=== PATIENT | female | born 2000 | race Caucasian/White ===

== ENCOUNTER 2018-04-17 05:37 | Inpatient (IN) | payer MEDICAID ==
[~2018-04-17] VITALS: Ht 162.6 cm; Wt 59.1 kg
[2018-04-17] MEDS ORDERED: normal saline 1000ML IV soln IV ONE (05:45)
[2018-04-17 06:07] LABS: BASOPHILS % (AUTO) 0 % (0-1); EOSINOPHILS % (AUTO) 0 % (0-6); HEMATOCRIT 52.4 % (35.0-45.0); HEMOGLOBIN 17.1 g/dl (12.0-16.0); LYMPHOCYTES # (AUTO) 0.5 X10'3 (1.1-4.8); LYMPHOCYTES % (AUTO) 3.8 % (21-51); MEAN CORPUSCULAR HEMOGLOBIN 26.7 PG (27.0-31.0); MEAN CORPUSCULAR HGB CONC 32.7 % (33.0-36.5); MEAN CORPUSCULAR VOLUME 81.9 FL (78-98); MEAN PLATELET VOLUME 7.9 FL (7.4-10.4); MONOCYTES # (AUTO) 0.6 X10'3 (0-0.9); MONOCYTES % (AUTO) 4.9 % (2-12); NEUTROPHILS # (AUTO) 11.9 X10'3 (1.8-7.7); NEUTROPHILS % (AUTO) 91.3 % (42-75); PLATELET COUNT 343 X10'3 (140-440); RED CELL DISTRIBUTION WIDTH 13.8 % (11.5-14.5)
[2018-04-17 06:15] LABS: ANION GAP 18 (8-16); CALCIUM 9.4 MG/DL (8.5-10.1); CHLORIDE 101 MMOL/L (99-107); CREATININE 1.96 MG/DL (0.40-0.90); POTASSIUM 4.1 MMOL/L (3.5-5.1); SODIUM 141 MMOL/L (135-145); TOTAL CARBON DIOXIDE 22.1 MMOL/L (24-32); eGFR 33 ML/MIN
[2018-04-17 06:26] LABS: INR 1.3 INR; PARTIAL THROMBOPLASTIN TIME 29 SECONDS (22-32); PROTHROMBIN TIME 12.6 SECONDS (9.0-12.0)
[2018-04-17 06:46] LABS: ALANINE AMINOTRANSFERASE 45 U/L (12-78); ALBUMIN 3.9 G/DL (3.4-5.0); ALBUMIN/GLOBULIN RATIO 0.9 (1.1-1.5); ALKALINE PHOSPHATASE 79 IU/L (20-180); ASPARTATE AMINO TRANSFERASE 15 U/L (10-37); BILIRUBIN,TOTAL 0.7 MG/DL (0.1-1.0); BLOOD UREA NITROGEN 16 MG/DL (7-18); BUN/CREATININE RATIO 8.2 (6.6-38.0); GLUCOSE 280 MG/DL (70-104); TOTAL PROTEIN 8.3 G/DL (6.4-8.2)
[2018-04-17 06:48] LABS: PLATELET ESTIMATE NORMAL; TOTAL CELLS COUNTED 100
[2018-04-17 06:49] LABS: MAGNESIUM 0.8 MG/DL (1.5-2.4)
[2018-04-17] MEDS ORDERED: normal saline 1000ML IV soln IVB ONE ×2 (06:55→08:35)
[2018-04-17] MEDS ORDERED: magnesium 1gm/100ml D5W IVPB 100 ML IV SCH (06:55)
[2018-04-17] MEDS ORDERED: magnesium 2GM in 50ml NS 50 ML IV ONE (07:00)
[2018-04-17] MEDS ORDERED: KEP500T PO (07:29)
[2018-04-17] MEDS ORDERED: CefTRIAXone 2gm/D5W 50ml 50 ML IV ONE (08:35)
[2018-04-17] MEDS ORDERED: acetaminophen 325mg tablet PO STA (08:35)
[2018-04-17 08:52] LABS: CLARITY,URINE SLIGHTLY CLOUDY (Clear); COLOR,URINE YELLOW (Yellow); GLUCOSE, URINE NEGATIVE (Neg); KETONES,URINE TRACE mg/dl (Neg); LEUKOCYTE ESTERASE ,URINE NEGATIVE (Neg); NITRITES, URINE NEGATIVE (Neg); OCCULT BLOOD,URINE TRACE-INTACT (Neg); PH,URINE 5.5 (4.8-8.0); PROTEIN,URINE NEGATIVE (Neg); UROBILINOGEN,URINE 0.2 E.U/dL (0.2-1.0)
[2018-04-17 08:53] LABS: URINE HCG NEGATIVE (NEG)
[2018-04-17 08:54] LABS: UA COLLECTION TYPE STRAIGHT CATH
[2018-04-17 09:00] LABS: BACTERIA,URINE FEW /HPF (Neg); MUCUS STRANDS MANY /LPF (Neg); RBC,URINE 0-2 /HPF (0-2); SQUAMOUS EPITHELIAL CELL,UR MANY /LPF (FEW); WBC,URINE 0-4 /HPF (0-4)
[2018-04-17] MEDS ORDERED: glucagon, human recombinant 1mg kit SUBCUT PRN (09:15)
[2018-04-17] MEDS ORDERED: acetaminophen 325mg tablet PO PRN (09:15)
[2018-04-17] MEDS ORDERED: potassium Cl 20 mEq SR tablet PO PRN ×2 (09:15)
[2018-04-17] MEDS ORDERED: potassium Cl 40MEQ/NS 500ml 500 ML IV PRN ×2 (09:15)
[2018-04-17] MEDS: K and/or MAG REPLACEMENT MC SCH (09:15)
[2018-04-17] MEDS ORDERED: magnesium 4gm in 100ml NS 100 ML IV PRN (09:15)
[2018-04-17] MEDS ORDERED: ondansetron/PF 4mg/2ml inj IV PRN (09:15)
[2018-04-17] MEDS ORDERED: magnesium hydroxide 30ml (MOM) UD suspension PO PRN (09:15)
[2018-04-17] MEDS ORDERED: mag hydrox/Alum hydrox/simeth 30ml oral suspension PO PRN (09:15)
[2018-04-17] MEDS ORDERED: insulin Lispro (HumaLOG) vial - multi-dose SQ SCH (09:15)
[2018-04-17] MEDS ORDERED: dextrose 50%-water 50ml dispensing syringe IV PRN ×2 (09:15)
[2018-04-17] MEDS ORDERED: acetaminophen 325mg/10.15ml oral unit dose solution PO PRN (09:15)
[2018-04-17] MEDS ORDERED: LORazepam 2 mg/ml vial IV PRN (09:15)
[2018-04-17] MEDS ORDERED: dextrose ORAL solution 15 GM/59 ML bottle PO PRN ×2 (09:15)
[2018-04-17] MEDS ORDERED: MESSAGE TO PHARMACY PO ONE (09:15)
[2018-04-17] MEDS ORDERED: magnesium 1gm/100ml D5W IVPB 100 ML IV PRN (09:15)
[2018-04-17] MEDS ORDERED: LORA0.5T PO (09:51)
[2018-04-17] MEDS ORDERED: LORA10CA9 PO (09:52)
[2018-04-17] MEDS ORDERED: CLON-529 PO (09:53)
[2018-04-17] MEDS ORDERED: LACO100T2 PO (09:54)
[2018-04-17] MEDS ORDERED: GLIM1TAB PO (09:55)
[2018-04-17] MEDS ORDERED: ESCI10TA PO (09:56)
[2018-04-17] MEDS ORDERED: MONT10TA24 PO (09:57)
[2018-04-17] MEDS ORDERED: LEVE100S21 PO (09:59)
[2018-04-17 10:03] LABS: HEMOGLOBIN A1C 6.7 % (4.5-6.2)
[2018-04-17] MEDS: normal saline 1000ml 1,000 ML IV SCH ×2 (11:56→17:51)
[2018-04-17 17:05] VITALS: BP 142/91
[2018-04-17 20:00] VITALS: BP 145/95
[2018-04-17] MEDS ORDERED: LACO10SO PO (20:07)
[2018-04-17] MEDS ORDERED: RANI15SY PO (20:07)
[2018-04-17] MEDS ORDERED: LEVO1TAB PO (20:14)
[2018-04-17] MEDS ORDERED: SENN1TAB28 PO (20:14)
[2018-04-17] MEDS ORDERED: IBUP100O20 PO (20:18)
[2018-04-17] MEDS: insulin glargine (Lantus) pen - multi-dose SQ SCH (21:00)
[2018-04-17] MEDS: LORazepam 0.5 MG tablet PO SCH (21:59)
[2018-04-17] MEDS: levetiracetam 100mg/ml oral solution 5ml UD cup PO SCH (22:00)
[2018-04-17] MEDS: cloNIDine 0.1 mg tablet PO SCH (22:00)
[2018-04-17] MEDS: LACOSAMIDE 10 MG/1 ML PO SCH (22:01)
[2018-04-18] VITALS: BP 129/95
[2018-04-18] MEDS: normal saline 1000ml 1,000 ML IV SCH ×3 (01:35→14:47)
[2018-04-18] MEDS: magnesium Cl slow-release 64mg tablet PO SCH ×2 (08:00→09:34)
[2018-04-18] MEDS ORDERED: famotidine 20MG/2.5ML oral suspension PO PRN (08:00)
[2018-04-18] MEDS: K and/or MAG REPLACEMENT MC SCH (08:00)
[2018-04-18 08:39] VITALS: BP 121/74
[2018-04-18] MEDS: loratadine 10mg tablet PO SCH (09:32)
[2018-04-18] MEDS: citalopram 20mg tablet PO SCH (09:32)
[2018-04-18] MEDS: LORazepam 0.5 MG tablet PO SCH ×3 (09:32→22:28)
[2018-04-18] MEDS: levetiracetam 100mg/ml oral solution 5ml UD cup PO SCH ×2 (09:33→20:09)
[2018-04-18] MEDS: montelukast 10mg tablet PO SCH (09:33)
[2018-04-18] MEDS: LACOSAMIDE 10 MG/1 ML PO SCH ×2 (09:36→20:35)
[2018-04-18 09:50] LABS: HEMATOCRIT 37.3 % (35.0-45.0); HEMOGLOBIN 12.1 g/dl (12.0-16.0); MEAN CORPUSCULAR HEMOGLOBIN 26.7 PG (27.0-31.0); MEAN CORPUSCULAR HGB CONC 32.5 % (33.0-36.5); MEAN CORPUSCULAR VOLUME 82.1 FL (78-98); PLATELET COUNT 185 X10'3 (140-440); RED BLOOD COUNT 4.55 X10'6 (4.20-5.60)
[2018-04-18 09:57] LABS: ALANINE AMINOTRANSFERASE 46 U/L (12-78); ALBUMIN 2.5 G/DL (3.4-5.0); ALBUMIN/GLOBULIN RATIO 0.8 (1.1-1.5); ALKALINE PHOSPHATASE 51 IU/L (20-180); ANION GAP 6 (8-16); ASPARTATE AMINO TRANSFERASE 37 U/L (10-37); BILIRUBIN,TOTAL 0.4 MG/DL (0.1-1.0); BLOOD UREA NITROGEN 4 MG/DL (7-18); BUN/CREATININE RATIO 7.3 (6.6-38.0); CALCIUM 7.9 MG/DL (8.5-10.1); CHLORIDE 109 MMOL/L (99-107); CREATININE 0.55 MG/DL (0.40-0.90); GLUCOSE 86 MG/DL (70-104); POTASSIUM 3.1 MMOL/L (3.5-5.1); SODIUM 140 MMOL/L (135-145); TOTAL CARBON DIOXIDE 24.8 MMOL/L (24-32); TOTAL PROTEIN 5.6 G/DL (6.4-8.2); eGFR > 90 ML/MIN
[2018-04-18 10:46] LABS: PLATELET ESTIMATE NORMAL; TOTAL CELLS COUNTED 100
[2018-04-18 11:57] VITALS: BP 150/118
[2018-04-18] MEDS ORDERED: potassium Cl oral solution 20 MEQ/15 ML PO PRN ×2 (14:52)
[2018-04-18 19:15] VITALS: BP 148/103
[2018-04-18] MEDS: insulin glargine (Lantus) pen - multi-dose SQ SCH (21:00)
[2018-04-18] MEDS ORDERED: vancomycin/NS 1 GM ADD-VANTAGE 250 ML IV SCH (22:00)
[2018-04-18] MEDS: VANCOMYCIN 750MG IV in NS 250 ML IV SCH (22:28)
[2018-04-18] MEDS: cloNIDine 0.1 mg tablet PO SCH (22:28)
[2018-04-19] VITALS: BP 123/86
[2018-04-19 04:52] LABS: BASOPHILS % (AUTO) 0.4 % (0-1); EOSINOPHILS # (AUTO) 0.2 X10'3 (0-0.9); EOSINOPHILS % (AUTO) 4.3 % (0-6); HEMATOCRIT 36.9 % (35.0-45.0); LYMPHOCYTES # (AUTO) 2.1 X10'3 (1.1-4.8); LYMPHOCYTES % (AUTO) 39.1 % (21-51); MEAN CORPUSCULAR HEMOGLOBIN 26.6 PG (27.0-31.0); MEAN CORPUSCULAR HGB CONC 32.6 % (33.0-36.5); MEAN CORPUSCULAR VOLUME 81.6 FL (78-98); MEAN PLATELET VOLUME 7.9 FL (7.4-10.4); MONOCYTES # (AUTO) 0.6 X10'3 (0-0.9); NEUTROPHILS # (AUTO) 2.4 X10'3 (1.8-7.7); NEUTROPHILS % (AUTO) 45.2 % (42-75); PLATELET COUNT 190 X10'3 (140-440); RED BLOOD COUNT 4.52 X10'6 (4.20-5.60); RED CELL DISTRIBUTION WIDTH 13.4 % (11.5-14.5); WHITE BLOOD COUNT 5.3 X10'3 (4.5-11.0)
[2018-04-19 05:18] LABS: ALANINE AMINOTRANSFERASE 47 U/L (12-78); ALBUMIN 2.5 G/DL (3.4-5.0); ALBUMIN/GLOBULIN RATIO 0.8 (1.1-1.5); ALKALINE PHOSPHATASE 45 IU/L (20-180); ANION GAP 9 (8-16); ASPARTATE AMINO TRANSFERASE 25 U/L (10-37); BILIRUBIN,TOTAL 0.3 MG/DL (0.1-1.0); BLOOD UREA NITROGEN 4 MG/DL (7-18); BUN/CREATININE RATIO 9.1 (6.6-38.0); CALCIUM 8.2 MG/DL (8.5-10.1); CHLORIDE 109 MMOL/L (99-107); CREATININE 0.44 MG/DL (0.40-0.90); GLUCOSE 109 MG/DL (70-104); MAGNESIUM 1.2 MG/DL (1.5-2.4); POTASSIUM 4.5 MMOL/L (3.5-5.1); SODIUM 141 MMOL/L (135-145); TOTAL CARBON DIOXIDE 23.3 MMOL/L (24-32); TOTAL PROTEIN 5.6 G/DL (6.4-8.2); eGFR > 90 ML/MIN
[2018-04-19] MEDS: VANCOMYCIN 750MG IV in NS 250 ML IV SCH ×3 (06:02→22:41)
[2018-04-19 07:00] VITALS: BP 117/89
[2018-04-19] MEDS: citalopram 20mg tablet PO SCH (07:44)
[2018-04-19] MEDS: magnesium Cl slow-release 64mg tablet PO PRN ×3 (07:44→09:26)
[2018-04-19] MEDS: montelukast 10mg tablet PO SCH (07:44)
[2018-04-19] MEDS: LORazepam 0.5 MG tablet PO SCH ×3 (07:44→20:37)
[2018-04-19] MEDS: loratadine 10mg tablet PO SCH (07:44)
[2018-04-19] MEDS: levetiracetam 100mg/ml oral solution 5ml UD cup PO SCH ×2 (07:45→20:33)
[2018-04-19] MEDS: K and/or MAG REPLACEMENT MC SCH (08:00)
[2018-04-19] MEDS: LACOSAMIDE 10 MG/1 ML PO SCH ×2 (09:18→20:36)
[2018-04-19 12:00] VITALS: BP 156/99
[2018-04-19 19:30] VITALS: BP 154/101
[2018-04-19] MEDS: lactobacillus rhamnosus 10,000 MMU CELLS/CAPSULE PO SCH (20:36)
[2018-04-19] MEDS: cloNIDine 0.1 mg tablet PO SCH (20:37)
[2018-04-19] MEDS: insulin glargine (Lantus) pen - multi-dose SQ SCH (21:00)
[2018-04-19] MEDS ORDERED: VANCOMYCIN LEVEL IV ONE (21:30)
[2018-04-20] VITALS: BP 111/82
[2018-04-20 04:58] LABS: BASOPHILS % (AUTO) 0.2 % (0-1); EOSINOPHILS # (AUTO) 0.3 X10'3 (0-0.9); EOSINOPHILS % (AUTO) 5.5 % (0-6); HEMOGLOBIN 13.1 g/dl (12.0-16.0); LYMPHOCYTES # (AUTO) 2.1 X10'3 (1.1-4.8); MEAN CORPUSCULAR HEMOGLOBIN 26.6 PG (27.0-31.0); MEAN CORPUSCULAR HGB CONC 32.7 % (33.0-36.5); MEAN CORPUSCULAR VOLUME 81.2 FL (78-98); MEAN PLATELET VOLUME 8.7 FL (7.4-10.4); MONOCYTES # (AUTO) 0.5 X10'3 (0-0.9); MONOCYTES % (AUTO) 8.4 % (2-12); NEUTROPHILS # (AUTO) 3.1 X10'3 (1.8-7.7); NEUTROPHILS % (AUTO) 50.9 % (42-75); PLATELET COUNT 187 X10'3 (140-440); RED BLOOD COUNT 4.92 X10'6 (4.20-5.60); RED CELL DISTRIBUTION WIDTH 13.7 % (11.5-14.5); WHITE BLOOD COUNT 6.1 X10'3 (4.5-11.0)
[2018-04-20 05:28] LABS: ALANINE AMINOTRANSFERASE 45 U/L (12-78); ALBUMIN/GLOBULIN RATIO 0.9 (1.1-1.5); ALKALINE PHOSPHATASE 49 IU/L (20-180); ANION GAP 12 (8-16); ASPARTATE AMINO TRANSFERASE 20 U/L (10-37); BILIRUBIN,TOTAL 0.3 MG/DL (0.1-1.0); BLOOD UREA NITROGEN 9 MG/DL (7-18); BUN/CREATININE RATIO 16.7 (6.6-38.0); CALCIUM 8.8 MG/DL (8.5-10.1); CHLORIDE 105 MMOL/L (99-107); CREATININE 0.54 MG/DL (0.40-0.90); GLUCOSE 119 MG/DL (70-104); MAGNESIUM 1.1 MG/DL (1.5-2.4); POTASSIUM 3.6 MMOL/L (3.5-5.1); SODIUM 139 MMOL/L (135-145); TOTAL CARBON DIOXIDE 22.1 MMOL/L (24-32); TOTAL PROTEIN 6.3 G/DL (6.4-8.2); eGFR > 90 ML/MIN
[2018-04-20] MEDS: VANCOMYCIN 750MG IV in NS 250 ML IV SCH (06:31)
[2018-04-20 07:00] VITALS: BP 111/76
[2018-04-20] MEDS: K and/or MAG REPLACEMENT MC SCH (08:00)
[2018-04-20] MEDS: loratadine 10mg tablet PO SCH (08:48)
[2018-04-20] MEDS: montelukast 10mg tablet PO SCH (08:48)
[2018-04-20] MEDS: LORazepam 0.5 MG tablet PO SCH (08:48)
[2018-04-20] MEDS: citalopram 20mg tablet PO SCH (08:48)
[2018-04-20] MEDS: lactobacillus rhamnosus 10,000 MMU CELLS/CAPSULE PO SCH (08:48)
[2018-04-20] MEDS: levetiracetam 100mg/ml oral solution 5ml UD cup PO SCH (08:48)
[2018-04-20] MEDS: LACOSAMIDE 10 MG/1 ML PO SCH (09:46)
[2018-04-20 11:00] VITALS: BP 119/82
[2018-04-20] MEDS ORDERED: vancomycin/NS 1 GM ADD-VANTAGE 250 ML IV SCH (14:00)
[2018-04-21] MEDS ORDERED: VANCOMYCIN LEVEL IV NR (13:30)
== END 2018-04-20 13:44 | disposition home or self-care (01) | DRG 720 ==
LOC: ER 05:38 → ED HOLD 09:14 → SUR 3N 17:00
PROVIDERS: ADMIT Emergency Medicine; ATTEND Emergency Medicine
DX: A41.9 Sepsis, unspecified organism (principal); E87.2 Acidosis; N17.9 Acute kidney failure, unspecified; A08.11 Acute gastroenteropathy due to Norwalk agent; E11.65 Type 2 diabetes mellitus with hyperglycemia; E83.42 Hypomagnesemia; E86.0 Dehydration; G40.909 Epilepsy, unspecified, not intractable, without status epilepticus; J45.909 Unspecified asthma, uncomplicated; H91.90 Unspecified hearing loss, unspecified ear; E87.6 Hypokalemia; R19.7 Diarrhea, unspecified; F90.9 Attention-deficit hyperactivity disorder, unspecified type; F81.9 Developmental disorder of scholastic skills, unspecified; F41.1 Generalized anxiety disorder; Z82.2 Family history of deafness and hearing loss
CPT/HCPCS: 36415; 71045; 74176; 80053; 80202; 81001; 81025; 82948; 83036; 83605; 83735; 84145; 85025; 85610; 85730; 87040; 87045; 87046; 87070; 87186; 87502; 87503; 89055; 93005; 96365; 96367; 99285; G0378; J0696; J1815; J3370; J3475; J3480; J7030

== ENCOUNTER 2018-10-26 18:25 | Emergency (ER) | payer MEDICAID ==
[~2018-10-26] VITALS: Ht 160 cm; Wt 73.6 kg
[~2018-10-26 18:25] MED LIST: CLON-529 PO; ESCI10TA PO; GLIM1TAB PO; IBUP100O20 PO; LACO10SO PO; LEVE100S21 PO; LEVO1TAB PO; LORA0.5T PO; LORA10CA9 PO; MONT10TA24 PO; RANI15SY PO; SENN1TAB28 PO
[2018-10-26 18:39] VITALS: BP 136/88
[2018-10-26] MEDS ORDERED: ziprasidone IM 20mg inj **IM only IM ONE (18:55)
[2018-10-26] MEDS ORDERED: diphenhydrAMINE 50 mg/ml inj IM ONE (18:55)
[2018-10-26] MEDS ORDERED: DIVA-74 PO (19:03)
[2018-10-26] MEDS ORDERED: ZIPR20CA2 PO (19:03)
[2018-10-26] MEDS ORDERED: ONDA4TAB6 PO (19:03)
[2018-10-26] MEDS ORDERED: CLON-528 PO (19:03)
[2018-10-26] MEDS ORDERED: PROP10TA10 PO (19:03)
[2018-10-26] MEDS ORDERED: GLIM1TAB46 PO (19:03)
[2018-10-26] MEDS ORDERED: CLON-529 PO (19:03)
[2018-10-26 19:47] LABS: BASOPHILS % (AUTO) 0.2 % (0-1); EOSINOPHILS # (AUTO) 0.7 X10'3 (0-0.9); EOSINOPHILS % (AUTO) 8.2 % (0-6); HEMATOCRIT 42.1 % (35.0-45.0); HEMOGLOBIN 14.3 g/dl (12.0-16.0); LYMPHOCYTES # (AUTO) 1.9 X10'3 (1.1-4.8); LYMPHOCYTES % (AUTO) 22.7 % (21-51); MEAN CORPUSCULAR HEMOGLOBIN 29.1 PG (27.0-31.0); MEAN CORPUSCULAR HGB CONC 34.1 g/dL (33.0-36.5); MEAN CORPUSCULAR VOLUME 85.3 FL (78-98); MEAN PLATELET VOLUME 7.6 FL (7.4-10.4); MONOCYTES # (AUTO) 0.7 X10'3 (0-0.9); MONOCYTES % (AUTO) 7.6 % (2-12); NEUTROPHILS # (AUTO) 5.2 X10'3 (1.8-7.7); NEUTROPHILS % (AUTO) 61.3 % (42-75); PLATELET COUNT 196 X10'3 (140-440); RED BLOOD COUNT 4.93 X10'6 (4.20-5.60); RED CELL DISTRIBUTION WIDTH 13.4 % (11.5-14.5); WHITE BLOOD COUNT 8.5 X10'3 (4.5-11.0)
--- NOTE | 2018-10-26 19:50 | NUR ---
mom at bedside giving information regarding the pt to dr cunningham.
[2018-10-26 19:59] LABS: ALANINE AMINOTRANSFERASE 66 U/L (12-78); ALBUMIN 3.3 G/DL (3.4-5.0); ALBUMIN/GLOBULIN RATIO 0.8 (1.1-1.5); ALKALINE PHOSPHATASE 74 IU/L (20-180); ANION GAP 7 (8-16); ASPARTATE AMINO TRANSFERASE 30 U/L (10-37); BILIRUBIN,TOTAL 0.3 MG/DL (0.1-1.0); BLOOD UREA NITROGEN 16 MG/DL (7-18); BUN/CREATININE RATIO 19.8 (6.6-38.0); CALCIUM 9.5 MG/DL (8.5-10.1); CHLORIDE 103 MMOL/L (99-107); CREATININE 0.81 MG/DL (0.40-0.90); GLUCOSE 155 MG/DL (70-104); LIPASE 153 U/L (73-393); POTASSIUM 4.1 MMOL/L (3.5-5.1); SODIUM 140 MMOL/L (135-145); TOTAL PROTEIN 7.7 G/DL (6.4-8.2); eGFR > 90 ML/MIN
[2018-10-26 20:06] LABS: CLARITY,URINE CLOUDY (Clear); GLUCOSE, URINE NEGATIVE (Neg); KETONES,URINE TRACE mg/dl (Neg); LEUKOCYTE ESTERASE ,URINE NEGATIVE (Neg); NITRITES, URINE NEGATIVE (Neg); OCCULT BLOOD,URINE LARGE (Neg); PROTEIN,URINE TRACE mg/dl (Neg); UROBILINOGEN,URINE 0.2 E.U/dL (0.2-1.0)
[2018-10-26 20:14] LABS: COLOR,URINE PINK (Yellow); UA COLLECTION TYPE CLN CATCH MIDSTREAM
[2018-10-26 20:17] LABS: BACTERIA,URINE 1+ /HPF (Neg); RBC,URINE TNTC /HPF (0-2); SQUAMOUS EPITHELIAL CELL,UR MANY /LPF (FEW); WBC,URINE 0-4 /HPF (0-4)
[2018-10-26 20:18] LABS: MUCUS STRANDS FEW /LPF (Neg)
== END 2018-10-26 20:40 | disposition home or self-care (01) ==
LOC: ER 18:25
DX: F29 Unspecified psychosis not due to a substance or known physiological condition (principal); J45.909 Unspecified asthma, uncomplicated; E11.9 Type 2 diabetes mellitus without complications; R45.1 Restlessness and agitation; R56.9 Unspecified convulsions; R11.10 Vomiting, unspecified; Z79.899 Other long term (current) drug therapy
CPT/HCPCS: 36415; 80053; 81001; 83690; 85025; 96372; 99284; J1200; J3486

== ENCOUNTER 2018-10-27 20:51 | Emergency (ER) | payer MEDICAID ==
[~2018-10-27] VITALS: Ht 152.4 cm; Wt 81.8 kg
[~2018-10-27 20:51] MED LIST changes: +CLON-528 PO; +DIVA-74 PO; -GLIM1TAB PO; +GLIM1TAB46 PO; -IBUP100O20 PO; -LACO10SO PO; -LEVE100S21 PO; +ONDA4TAB6 PO; +PROP10TA10 PO; +ZIPR20CA2 PO
[2018-10-27 21:09] VITALS: BP 124/71
--- NOTE | 2018-10-27 21:14 | NUR ---
Dr. Mckeon bedside indicating lab draw only as pt was seen here yesterday for same.
[2018-10-27 21:36] LABS: BASOPHILS # (AUTO) 0.1 X10'3 (0-0.2); EOSINOPHILS # (AUTO) 0.6 X10'3 (0-0.9); EOSINOPHILS % (AUTO) 7.4 % (0-6); HEMATOCRIT 39.9 % (35.0-45.0); HEMOGLOBIN 13.5 g/dl (12.0-16.0); LYMPHOCYTES # (AUTO) 1.9 X10'3 (1.1-4.8); LYMPHOCYTES % (AUTO) 22.3 % (21-51); MEAN CORPUSCULAR HGB CONC 33.9 g/dL (33.0-36.5); MEAN CORPUSCULAR VOLUME 85.5 FL (78-98); MEAN PLATELET VOLUME 7.4 FL (7.4-10.4); MONOCYTES # (AUTO) 0.6 X10'3 (0-0.9); MONOCYTES % (AUTO) 6.8 % (2-12); NEUTROPHILS # (AUTO) 5.4 X10'3 (1.8-7.7); NEUTROPHILS % (AUTO) 62.5 % (42-75); PLATELET COUNT 182 X10'3 (140-440); RED BLOOD COUNT 4.66 X10'6 (4.20-5.60); RED CELL DISTRIBUTION WIDTH 13.4 % (11.5-14.5); WHITE BLOOD COUNT 8.6 X10'3 (4.5-11.0)
[2018-10-27 21:59] LABS: ALANINE AMINOTRANSFERASE 64 U/L (12-78); ALBUMIN 3.1 G/DL (3.4-5.0); ALBUMIN/GLOBULIN RATIO 0.8 (1.1-1.5); ALKALINE PHOSPHATASE 73 IU/L (20-180); ANION GAP 6 (8-16); ASPARTATE AMINO TRANSFERASE 32 U/L (10-37); BILIRUBIN,TOTAL 0.3 MG/DL (0.1-1.0); BLOOD UREA NITROGEN 15 MG/DL (7-18); BUN/CREATININE RATIO 18.3 (6.6-38.0); CHLORIDE 102 MMOL/L (99-107); CREATININE 0.82 MG/DL (0.40-0.90); ETHANOL < 0.010 GM/DL (0.0-0.010); GLUCOSE 237 MG/DL (70-104); POTASSIUM 4.5 MMOL/L (3.5-5.1); SODIUM 137 MMOL/L (135-145); TOTAL PROTEIN 7.2 G/DL (6.4-8.2); eGFR 90 ML/MIN
--- NOTE | 2018-10-27 22:30 | NUR ---
PT MOVED TO ROOM 13. PT WILL NOT ANSWER QUESTIONS BUT WILL FOLLOW COMMANDS.
[2018-10-27 22:47] LABS: URINE HCG NEGATIVE (NEG)
[2018-10-27 23:04] LABS: URINE AMPHETAMINE SCREEN NEGATIVE (Neg); URINE BARBITUATE SCREEN NEGATIVE (Neg); URINE BENZODIAZEPINES SCREEN NEGATIVE (Neg); URINE CANNABINOID SCREEN NEGATIVE (Neg); URINE COCAINE SCREEN NEGATIVE (Neg); URINE METHADONE SCREEN NEGATIVE (Neg); URINE OPIATE SCREEN NEGATIVE (Neg); URINE PHENCYCLIDINE SCREEN NEGATIVE (Neg)
--- NOTE | 2018-10-27 23:15 | NUR ---
ROUNDED ON PT AND FOUND PT CRYING. RN ASKED HER WHAT WAS WRONG BUT PT DID NOT ANSWER. STAYED WITH PT FOR AWHILE, GVE HER TISSUES, BUT PT CONTINUED TO NOT ANSWER QUESTIONS. LEFT PT SITTING IN BED HOLDING HER STUFFED ANIMAL
--- NOTE | 2018-10-28 00:19 | NUR ---
PT STANDING AT DOORWAY AND GRABBED MY HANDS. PT MOTIONED IN SIGN LANGUAGE FOR MOTHER. RN AND SDE EXPLAINED TO PT THAT PT MOTHER IS AT HOME. PT PLACED BACK IN BED, STUFFED ANIMAL IN HAND, AND LIGHTS TURNED OFF.
--- NOTE | 2018-10-28 02:34 | NUR ---
Pt appears to be sleeping, lying on her right side with blankets covering to her shoulders. RR 4 and unlabored.
--- NOTE | 2018-10-28 03:30 | NUR ---
PT APPEARS TO BE SLEEPING COMFORTABLY ON RIGHT SIDE, CHEST RISING EVENLY, RR 12. BLANKET ON PT AND PT HOLDING STUFFED ANIMAL
--- NOTE | 2018-10-28 04:42 | NUR ---
PT APPEARS TO BE SLEEPING COMFORTABLY ON LEFT SIDE, CHEST RISING EVENLY. BLANKET ON PT AND PT HOLDING STUFFED ANIMAL
--- NOTE | 2018-10-28 05:55 | NUR ---
PT APPEARS TO BE SLEEPING, PT ON BACK, BLANKET PUSHED OFF PT. RR 14, EVEN AND UNLABORED
--- NOTE | 2018-10-28 05:57 | NUR ---
FAXED PACKET TO [facility]
--- NOTE | 2018-10-28 07:56 | NUR ---
pt brought over from rm 13. pt is gowned in green scrubs. pt is laying in bed and will not respond to any questions. pt just closes her eyes and turns away. unable to assess for any s/i or active plan at this time.
--- NOTE | 2018-10-28 08:19 | NUR ---
pt is asleep at this time. pt was woken up for breakfast but refusing to eat at this time
--- NOTE | 2018-10-28 08:52 | NUR ---
mom at bedside visiting daughter
--- NOTE | 2018-10-28 10:04 | NUR ---
pt visiting with her mom. pt assisted to bathroom.
--- NOTE | 2018-10-28 11:49 | NUR ---
sadie from mental health has tried multiple times to reach the mother on cell phone.
--- NOTE | 2018-10-28 12:30 | NUR ---
MOTHER HERE TO VISIT. MOTHER SPEAKING WITH [employer] MENT[employer] WORKER. PATIENT ALERT AND COOPERATIVE, RESTING IN BED.
--- NOTE | 2018-10-28 12:55 | NUR ---
PATIENT RECEIVED BELONGINGS AND ALL PRESCRIPTION MEDICATIONS THAT WERE STORED IN PHARMACY. GETTING DRESSED FOR DISCHARGE. DISCHARGE INSTRUCTIONS GIVEN TO MOTHER AND PATIENT AND VERBALIZED UNDERSTANDING. DEPARTED AMBULATORY, TO LOBBY FOR CAB RIDE HOME.
== END 2018-10-28 13:14 | disposition home or self-care (01) ==
LOC: ER 20:52
DX: F84.0 Autistic disorder (principal); G40.89 Other seizures; J45.909 Unspecified asthma, uncomplicated; E11.9 Type 2 diabetes mellitus without complications; Z79.899 Other long term (current) drug therapy
CPT/HCPCS: 36415; 80053; 80305; 80320; 81025; 84443; 85025; 99285

== ENCOUNTER 2018-11-02 14:06 | Emergency (ER) | payer MEDICAID ==
[~2018-11-02] VITALS: Ht 160 cm; Wt 75.0 kg
[2018-11-02 15:59] LABS: BASOPHILS % (AUTO) 0.5 % (0-1); EOSINOPHILS # (AUTO) 0.7 X10'3 (0-0.9); EOSINOPHILS % (AUTO) 8.6 % (0-6); HEMATOCRIT 42.1 % (35.0-45.0); HEMOGLOBIN 14.6 g/dl (12.0-16.0); LYMPHOCYTES # (AUTO) 2.5 X10'3 (1.1-4.8); LYMPHOCYTES % (AUTO) 29.4 % (21-51); MEAN CORPUSCULAR HEMOGLOBIN 29.3 PG (27.0-31.0); MEAN CORPUSCULAR HGB CONC 34.6 g/dL (33.0-36.5); MEAN CORPUSCULAR VOLUME 84.6 FL (78-98); MEAN PLATELET VOLUME 6.9 FL (7.4-10.4); MONOCYTES # (AUTO) 0.8 X10'3 (0-0.9); MONOCYTES % (AUTO) 9.4 % (2-12); NEUTROPHILS # (AUTO) 4.4 X10'3 (1.8-7.7); NEUTROPHILS % (AUTO) 52.1 % (42-75); PLATELET COUNT 163 X10'3 (140-440); RED BLOOD COUNT 4.97 X10'6 (4.20-5.60); WHITE BLOOD COUNT 8.4 X10'3 (4.5-11.0)
[2018-11-02] MEDS ORDERED: LORazepam 2 mg/ml vial IM ONE ×2 (16:15→18:05)
[2018-11-02 16:45] LABS: ALANINE AMINOTRANSFERASE 90 U/L (12-78); ALBUMIN 3.3 G/DL (3.4-5.0); ALBUMIN/GLOBULIN RATIO 0.8 (1.1-1.5); ALKALINE PHOSPHATASE 75 IU/L (20-180); ANION GAP 6 (8-16); ASPARTATE AMINO TRANSFERASE 41 U/L (10-37); BILIRUBIN,TOTAL 0.4 MG/DL (0.1-1.0); BLOOD UREA NITROGEN 11 MG/DL (7-18); BUN/CREATININE RATIO 15.1 (6.6-38.0); CALCIUM 9.5 MG/DL (8.5-10.1); CHLORIDE 103 MMOL/L (99-107); CREATININE 0.73 MG/DL (0.40-0.90); GLUCOSE 114 MG/DL (70-104); POTASSIUM 4.2 MMOL/L (3.5-5.1); SODIUM 139 MMOL/L (135-145); TOTAL CARBON DIOXIDE 30.2 MMOL/L (24-32); TOTAL PROTEIN 7.4 G/DL (6.4-8.2); eGFR > 90 ML/MIN
[2018-11-02 16:55] VITALS: BP 118/97
[2018-11-02 17:00] LABS: VALPROATE 34 UG/ML (50-100)
[2018-11-02 17:18] LABS: CLARITY,URINE SLIGHTLY CLOUDY (Clear); COLOR,URINE YELLOW (Yellow); GLUCOSE, URINE 250 mg/dl (Neg); KETONES,URINE TRACE mg/dl (Neg); LEUKOCYTE ESTERASE ,URINE NEGATIVE (Neg); NITRITES, URINE NEGATIVE (Neg); OCCULT BLOOD,URINE NEGATIVE (Neg); PROTEIN,URINE TRACE mg/dl (Neg); UROBILINOGEN,URINE 0.2 E.U/dL (0.2-1.0)
[2018-11-02 17:19] LABS: UA COLLECTION TYPE CLN CATCH MIDSTREAM
[2018-11-02] MEDS ORDERED: ziprasidone IM 20mg inj **IM only IM ONE (17:30)
[2018-11-02 17:41] LABS: MUCUS STRANDS MANY /LPF (Neg); SQUAMOUS EPITHELIAL CELL,UR MANY /LPF (FEW)
[2018-11-02 17:42] LABS: BACTERIA,URINE 1+ /HPF (Neg); RBC,URINE NONE SEEN /HPF (0-2); WBC,URINE 0-4 /HPF (0-4)
--- NOTE | 2018-11-02 17:59 | NUR ---
PT'S MOTHER CELL PHONE # [phone]
--- NOTE | 2018-11-02 18:01 | NUR ---
PT IS AGITATED ADVISED PROVIDER, 1 MG OF ATIVAN WAS ORDERED.
[2018-11-03] MEDS ORDERED: DIVA-76 PO (15:48)
== END 2018-11-02 18:27 | disposition home or self-care (01) ==
LOC: ER 14:06
DX: G40.409 Other generalized epilepsy and epileptic syndromes, not intractable, without status epilepticus (principal); J45.909 Unspecified asthma, uncomplicated; E11.9 Type 2 diabetes mellitus without complications; F84.0 Autistic disorder; F43.10 Post-traumatic stress disorder, unspecified; Z79.899 Other long term (current) drug therapy
CPT/HCPCS: 36415; 80053; 80164; 81001; 85025; 96372; 99284; J2060; J3486

== ENCOUNTER 2018-11-03 13:10 | Emergency (ER) | payer MEDICAID ==
[~2018-11-03] VITALS: Ht 149.9 cm; Wt 56.0 kg
[2018-11-03] MEDS ORDERED: valproate sod inj 500 MG in normal saline 100ml IV soln 95 ML IV ONE (13:25)
--- NOTE | 2018-11-03 14:02 | NUR ---
FAMILY AT BEDSIDE,VALPROATE SODIUM IV 100ML GOING.
[2018-11-03 14:47] VITALS: BP 122/79
[2018-11-03] MEDS ORDERED: DIVA-76 PO (15:48)
== END 2018-11-03 15:59 | disposition home or self-care (01) ==
LOC: ER 13:10
DX: G40.909 Epilepsy, unspecified, not intractable, without status epilepticus (principal); E66.9 Obesity, unspecified; J45.909 Unspecified asthma, uncomplicated; E11.9 Type 2 diabetes mellitus without complications; Z79.899 Other long term (current) drug therapy
CPT/HCPCS: 96365; 99284; J7030

== ENCOUNTER 2018-11-05 22:19 | Emergency (ER) | payer MEDICAID ==
[~2018-11-05] VITALS: Ht 149.9 cm; Wt 56.0 kg
[~2018-11-05 22:19] MED LIST changes: +DIVA-76 PO
--- NOTE | 2018-11-05 22:36 | NUR ---
relieving RN for lunch, pt was BIB EMS s/p sz and unwitnessed fall at home, pt is at baseline--follows commands, nonverbal, autistic, resp even and unlabored, skin is pale, dry and warm, waiting to be evaluated
--- NOTE | 2018-11-05 23:37 | NUR ---
Taken for CT head, mother accompanying to help keep her calm. Pt sleepy and calm through the scan. Pt now being assisted up to BSC. Mother reports she cannot tolerate the straight cath and if it is necessary, Pt will need sedative otherwise she will become very aggressive.
[2018-11-05 23:49] LABS: BASOPHILS % (AUTO) 0.3 % (0-1); EOSINOPHILS # (AUTO) 0.2 X10'3 (0-0.9); EOSINOPHILS % (AUTO) 4.2 % (0-6); HEMATOCRIT 39.9 % (35.0-45.0); HEMOGLOBIN 13.6 g/dl (12.0-16.0); LYMPHOCYTES # (AUTO) 1.2 X10'3 (1.1-4.8); LYMPHOCYTES % (AUTO) 22.2 % (21-51); MEAN CORPUSCULAR HEMOGLOBIN 28.6 PG (27.0-31.0); MEAN CORPUSCULAR VOLUME 84.3 FL (78-98); MEAN PLATELET VOLUME 7.3 FL (7.4-10.4); MONOCYTES # (AUTO) 0.7 X10'3 (0-0.9); MONOCYTES % (AUTO) 13.3 % (2-12); NEUTROPHILS # (AUTO) 3.3 X10'3 (1.8-7.7); PLATELET COUNT 122 X10'3 (140-440); RED BLOOD COUNT 4.74 X10'6 (4.20-5.60); RED CELL DISTRIBUTION WIDTH 13.3 % (11.5-14.5); WHITE BLOOD COUNT 5.6 X10'3 (4.5-11.0)
[2018-11-05] MEDS ORDERED: [UNRECOGNIZED DRUG - CODE] (23:52)
[2018-11-05 23:54] LABS: ALANINE AMINOTRANSFERASE 64 U/L (12-78); ALBUMIN/GLOBULIN RATIO 0.7 (1.1-1.5); ALKALINE PHOSPHATASE 76 IU/L (20-180); ANION GAP 6 (8-16); ASPARTATE AMINO TRANSFERASE 26 U/L (10-37); BILIRUBIN,TOTAL 0.5 MG/DL (0.1-1.0); BLOOD UREA NITROGEN 10 MG/DL (7-18); BUN/CREATININE RATIO 11.6 (6.6-38.0); CHLORIDE 98 MMOL/L (99-107); CREATININE 0.86 MG/DL (0.40-0.90); GLUCOSE 232 MG/DL (70-104); POTASSIUM 4.1 MMOL/L (3.5-5.1); SODIUM 134 MMOL/L (135-145); TOTAL CARBON DIOXIDE 30.4 MMOL/L (24-32); TOTAL PROTEIN 7.1 G/DL (6.4-8.2); VALPROATE 78 UG/ML (50-100); eGFR 85 ML/MIN
--- NOTE | 2018-11-05 23:57 | NUR ---
med rec completed, labs drawn. awaiting results of labs and ct scan. mother remains at bedside.
[2018-11-05 23:58] LABS: URINE AMPHETAMINE SCREEN NEGATIVE (Neg); URINE BARBITUATE SCREEN NEGATIVE (Neg); URINE BENZODIAZEPINES SCREEN NEGATIVE (Neg); URINE CANNABINOID SCREEN NEGATIVE (Neg); URINE COCAINE SCREEN NEGATIVE (Neg); URINE METHADONE SCREEN NEGATIVE (Neg); URINE OPIATE SCREEN NEGATIVE (Neg); URINE PHENCYCLIDINE SCREEN NEGATIVE (Neg)
--- NOTE | 2018-11-06 00:39 | NUR ---
pt jack talking with mother and updating on plan of care.
--- NOTE | 2018-11-06 01:04 | NUR ---
Pt was flagged for discharge then YUE White requested a repeat ekg. Mother reports Pt seems to be better than when she first came in.
[2018-11-06 01:06] VITALS: BP 131/87
--- NOTE | 2018-11-06 01:26 | NUR ---
pts father now at bedside to transports home. shruthi jack reports no changes from the 0 hr ekg to the one just completed. pt now ok to discharge.
== END 2018-11-06 01:28 | disposition home or self-care (01) ==
LOC: ER 22:20
DX: S06.9X1A Unspecified intracranial injury with loss of consciousness of 30 minutes or less, initial encounter (principal); R55 Syncope and collapse; J45.909 Unspecified asthma, uncomplicated; E11.9 Type 2 diabetes mellitus without complications; Z86.69 Personal history of other diseases of the nervous system and sense organs; Z79.899 Other long term (current) drug therapy; X58.XXXA Exposure to other specified factors, initial encounter; Y93.89 Activity, other specified; Y92.89 Other specified places as the place of occurrence of the external cause; Y99.8 Other external cause status
CPT/HCPCS: 36415; 70450; 80053; 80164; 80305; 85025; 85610; 93005; 99284

== ENCOUNTER 2018-11-06 17:06 | Emergency (ER) | payer MEDICAID ==
[~2018-11-06] VITALS: Ht 165.1 cm; Wt 70.5 kg
[~2018-11-06 17:06] MED LIST changes: -CLON-529 PO; -DIVA-74 PO; -ESCI10TA PO; -LEVO1TAB PO; -RANI15SY PO; +[UNRECOGNIZED DRUG - CODE]
[2018-11-06 18:35] VITALS: BP 119/91
--- NOTE | 2018-11-06 18:47 | NUR ---
pt resting in bed,calm ,light switched off .mom at bedside.
--- NOTE | 2018-11-06 19:40 | NUR ---
pt walking around the hallway with mom ,was aggressive before trying to get out of bed.
[2018-11-06] MEDS ORDERED: ziprasidone IM 20mg inj **IM only IM ONE (20:00)
[2018-11-06] MEDS ORDERED: LORazepam 2 mg/ml vial ONE (20:00)
[2018-11-06] MEDS ORDERED: LORazepam 2 mg/ml vial IV ONE (20:00)
== END 2018-11-06 20:31 | disposition home or self-care (01) ==
LOC: ER 17:06
DX: F91.9 Conduct disorder, unspecified (principal); F84.0 Autistic disorder; R56.9 Unspecified convulsions; J45.909 Unspecified asthma, uncomplicated; E11.9 Type 2 diabetes mellitus without complications; Z79.899 Other long term (current) drug therapy
CPT/HCPCS: 96372; 96374; 99284; J2060; J3486

== ENCOUNTER 2018-11-14 20:05 | Emergency (ER) | payer MEDICAID ==
[~2018-11-14] VITALS: Ht 162.6 cm; Wt 70.0 kg
--- NOTE | 2018-11-14 20:13 | NUR ---
spoke to MD Fofana about pts history and he would like 1mg Ativan IM given. Order entered and will be carried out.
[2018-11-14] MEDS ORDERED: LORazepam 2 mg/ml vial IM ONE (20:15)
--- NOTE | 2018-11-14 20:43 | NUR ---
MOTHER IS AT BEDSIDE AND STATES HE DAUGHTER NEEDS TO BE CHANGED "RIGHT NOW" BECAUSE SHE IS WET AND IT IS BURNING. "YOU WOULD UNDERSTAND YOU ARE A WOMAN", SHE TELLS ME. I ADVISED HER WE WERE VERY BUSY AND THAT I WOULD BE CALLING A TECH TO ASSIST HER. AFTER ABOUT 1 MIN SHE APPROACHES ME AND ASKS AGAIN. I AGAIN TOLD HER I HAVE CALLED FOR A TECH TO ASSIST AND ASK WHO CHANGES HER AT HOME. THE MOTHER STATES, "I DO". I ADVISED HER SHE WAS MORE THAN WELCOME TO CHANGE HER HERE WELL AND THAT IF SHE REQUIRED ASSISTANCE SHE WOULD HAVE TO WAIT FOR THE TECH TO COME. TECH ARRIVED AND HELPED CHANGE PATIENT.
--- NOTE | 2018-11-14 20:56 | NUR ---
MOTHER REPORTS HER DAUGHTER IS HAVING A SEIZURE. SHE IS IN BED. LAYING ON HER RIGHT SIDE. SEIZURE PADS ARE IN PLACE. PT HAVING SLIGHT SHAKING WITH THE LEFT ARM. MD CAMILO CALLED TO BEDSIDE. MOTHER STATES THAT GEODON USUALLY STOPS HER SEIZURES. MD WILL ENTER ORDERS.
[2018-11-14] MEDS ORDERED: ziprasidone IM 20mg inj **IM only IM ONE (21:00)
--- NOTE | 2018-11-14 21:29 | NUR ---
PT HAS BEEN MEDICATED. SHE IS NOT COOPERATIVE WITH VITALS AND MONITORING EQUIPMENT. WILL ATTEMPT AGAIN ONCE PTS MEDS HAVE HAD TIME TO TAKE EFFECT.
[2018-11-14] MEDS ORDERED: quetiapine 100mg tablet PO STA (21:52)
[2018-11-14 22:08] VITALS: BP 143/96
== END 2018-11-14 22:18 | disposition home or self-care (01) ==
LOC: ER 20:06
DX: G40.89 Other seizures (principal); J45.909 Unspecified asthma, uncomplicated; E11.9 Type 2 diabetes mellitus without complications; Z79.899 Other long term (current) drug therapy
CPT/HCPCS: 93005; 96372; 99284; J2060; J3486

== ENCOUNTER 2018-12-08 16:28 | Emergency (ER) | payer MEDICAID ==
[~2018-12-08] VITALS: Ht 160 cm; Wt 63.0 kg
[~2018-12-08 16:28] MED LIST changes: -DIVA-76 PO; +SENN1TAB PO; -SENN1TAB28 PO
[2018-12-08] MEDS ORDERED: valproate sod 250mg/5ml UD oral syrup PO STA (17:43)
[2018-12-08] MEDS ORDERED: VALP250S PO (17:47)
[2018-12-08 18:31] VITALS: BP 134/96
== END 2018-12-08 18:33 | disposition home or self-care (01) ==
LOC: ER 16:29
DX: G40.909 Epilepsy, unspecified, not intractable, without status epilepticus (principal); J02.9 Acute pharyngitis, unspecified; R05 Cough; R50.9 Fever, unspecified; R62.50 Unspecified lack of expected normal physiological development in childhood; J45.909 Unspecified asthma, uncomplicated; E11.9 Type 2 diabetes mellitus without complications; Z91.14 Patient's other noncompliance with medication regimen; Z79.899 Other long term (current) drug therapy
CPT/HCPCS: 82948; 99283

== ENCOUNTER 2018-12-17 14:18 | Emergency (ER) | payer MEDICAID ==
[~2018-12-17] VITALS: Ht 149.9 cm; Wt 56.3 kg
[~2018-12-17 14:18] MED LIST changes: +VALP250S PO
[2018-12-17] MEDS ORDERED: LORazepam 2 mg/ml vial IV ONE (14:50)
[2018-12-17 15:36] VITALS: BP 120/83
== END 2018-12-17 15:40 | disposition home or self-care (01) ==
LOC: ER 14:19
DX: G40.909 Epilepsy, unspecified, not intractable, without status epilepticus (principal); R62.50 Unspecified lack of expected normal physiological development in childhood; R41.82 Altered mental status, unspecified; F91.9 Conduct disorder, unspecified; J45.909 Unspecified asthma, uncomplicated; E11.9 Type 2 diabetes mellitus without complications; Z79.899 Other long term (current) drug therapy
CPT/HCPCS: 96374; 99283; J2060

== ENCOUNTER 2020-03-26 14:37 | Emergency (ER) | payer MEDICARE, MEDICAID ==
[~2020-03-26] VITALS: Ht 152.4 cm; Wt 63.6 kg
[~2020-03-26 14:37] MED LIST changes: +AMA1T PO; +CLON0.3T47; -GLIM1TAB46 PO; -MONT10TA24 PO; +MONT10TA26 PO; -[UNRECOGNIZED DRUG - CODE]
[2020-03-26 17:45] VITALS: BP 125/82
[2020-03-26] MEDS ORDERED: LIDOcaine Viscous 15ml cup ONE (17:51)
[2020-03-26] MEDS ORDERED: MIDAZolam 5mg/5ml vial ONE (17:51)
[2020-03-26] MEDS ORDERED: fentaNYL/PF 50MCG/1 ML 2ML syringe ONE (17:51)
--- NOTE | 2020-03-26 18:01 | NUR ---
pt to gi lab
[2020-03-26] MEDS ORDERED: ringers solution, lacted 1,000 ML IV SCH (18:50)
[2020-03-26] MEDS ORDERED: ringers solution, lacted 1,000 ML IV ONE (18:50)
[2020-03-26] MEDS ORDERED: labetalol 20mg/4ml (5mg/ml) syringe IV PRN (18:50)
[2020-03-26] MEDS ORDERED: ondansetron/PF 4mg/2ml inj IV PRN (18:50)
[2020-03-26] MEDS ORDERED: morphine 2 MG/ML inj. syringe IV PRN (18:50)
[2020-03-26] MEDS ORDERED: morphine 4 MG/ML inj SYRINge IV PRN (18:50)
[2020-03-26] MEDS ORDERED: fentaNYL/PF 50MCG/1 ML 2ML syringe IV PRN ×2 (18:50)
[2020-03-26] MEDS ORDERED: hydrALAZINE 20mg/ml inj. IV PRN (18:50)
[2020-03-26] MEDS ORDERED: LIDOcaine 2% (20mg/ml) 5ml vial ONE (20:46)
[2020-03-26] MEDS ORDERED: propofol inj 20 ML IV ONE (20:46)
[2020-03-26] MEDS ORDERED: succinylcholine 20mg/ml inj IV ONE (20:47)
[2020-03-26 20:50] LABS: BASOPHILS % (AUTO) 0.2 % (0-1); EOSINOPHILS # (AUTO) 0.1 X10'3 (0-0.9); EOSINOPHILS % (AUTO) 1.2 % (0-6); HEMATOCRIT 43.7 % (35.0-45.0); HEMOGLOBIN 14.6 g/dl (12.0-16.0); LYMPHOCYTES # (AUTO) 2.4 X10'3 (1.1-4.8); LYMPHOCYTES % (AUTO) 19.8 % (21-51); MEAN CORPUSCULAR HEMOGLOBIN 27.9 PG (27.0-31.0); MEAN CORPUSCULAR HGB CONC 33.4 g/dL (33.0-36.5); MEAN CORPUSCULAR VOLUME 83.6 FL (78-98); MEAN PLATELET VOLUME 8.6 FL (7.4-10.4); MONOCYTES # (AUTO) 0.5 X10'3 (0-0.9); MONOCYTES % (AUTO) 4.4 % (2-12); NEUTROPHILS # (AUTO) 8.9 X10'3 (1.8-7.7); NEUTROPHILS % (AUTO) 74.4 % (42-75); PLATELET COUNT 276 X10'3 (140-440); RED BLOOD COUNT 5.23 X10'6 (4.20-5.60); RED CELL DISTRIBUTION WIDTH 12.3 % (11.5-14.5); WHITE BLOOD COUNT 11.9 X10'3 (4.5-11.0)
[2020-03-26 20:58] LABS: ALBUMIN 3.9 G/DL (3.4-5.0); ANION GAP 13 (8-16); BLOOD UREA NITROGEN 12 MG/DL (7-18); BUN/CREATININE RATIO 17.1 (6.6-38.0); CALCIUM 9.3 MG/DL (8.5-10.1); CHLORIDE 100 MMOL/L (99-107); GLUCOSE 271 MG/DL (70-104); POTASSIUM 3.7 MMOL/L (3.5-5.1); SODIUM 135 MMOL/L (135-145); TOTAL CARBON DIOXIDE 21.7 MMOL/L (24-32); eGFR > 90 ML/MIN
[2020-03-26] MEDS ORDERED: sevoflurane 250ml liquid IH ONE (20:59)
[2020-03-26] MEDS ORDERED: labetalol 20mg/4ml (5mg/ml) syringe IV ONE (21:14)
--- NOTE | 2020-03-26 21:21 | NUR ---
Received from OR via [facility] , accompanied by Anesthesiologist DR OCONNELL and report given by Anesthesiologist. AWAKE, FOLLOWING MINIMAL DIRECTIONS, NONVERBAL PER BASELINE LEVEL. IV PATENT RT AC # 18 WITH LR AT 100/HR. UNABLE TO ACQUIRE BP MEASUREMENT DUE TO MOVEMENT- OKAY IF UNABLE TO ACQUIRE BP PER DR OCONNELL. RESP RATE EVEN AND UNLABORED. MOTHER AT BEDSIDE. NO COMPLAINTS. SKIN PINK/WAR/DRY. Addendum: 03/26/20 at 2136 by Rodrigue Vick RN, RN Amended: Links added.
--- NOTE | 2020-03-26 21:34 | NUR ---
PATIENT NON VERBAL WITH DEVELOPMENTAL DELAY. UNABLE TO SAFELY SEDATE PATIENT NOT TOLERATING NASAL CANNULA AND DECISION MADE TO FOREGO PROCEDURE IN GI LAB AND GO TO THE OR FOR GENERAL ANESTHESIA. RETURNED TO ED FOR THE TIME BEING. Addendum: 03/26/20 at 2138 by Kathya Mae RN Amended: Links added. Addendum: 03/27/20 at 1356 by Kathya Mae RN THIS NOTE WAS ENTERED AT 2138. PATIENT WAS RETURNED TO ED PREVIOUSLY AROUND 1814. REPORT GIVEN TO KOKO, PRIMARY CARE NURSE AT THAT TIME.
[2020-03-26 21:51] VITALS: BP 130/87
[2020-03-26 22:01] VITALS: BP 124/89
[2020-03-26 22:11] VITALS: BP 128/86
--- NOTE | 2020-03-26 22:21 | NUR ---
VSS. NO COMPLAINTS OF PAIN. IV DC'D WITH CANNULA INTACT AND PRESSURE DSG APPLIED. PT TO ER VIA W/C WITH MOTHER PRESENT. FIDEL CHIANG CHARGE NURSE ASSUMED CARE OF PT FOR DC INSTRUCTIONS AND TRANSPORT TO [facility]. ALL BELONGINGS PRESENT WITH MOTHER. Addendum: 03/26/20 at 2228 by Anaid Wayne RN Amended: Links added.
[2020-03-27] MEDS ORDERED: famotidine/PF 10 mg/ml inj IV ONE (06:00)
== END 2020-03-26 22:21 | disposition home or self-care (01) ==
LOC: ER 14:37 → PACU 20:45 → ER 22:21
DX: K22.2 Esophageal obstruction (principal); R13.10 Dysphagia, unspecified; R11.10 Vomiting, unspecified; F89 Unspecified disorder of psychological development; J45.909 Unspecified asthma, uncomplicated; E11.9 Type 2 diabetes mellitus without complications; Z86.69 Personal history of other diseases of the nervous system and sense organs; Z79.899 Other long term (current) drug therapy
CPT/HCPCS: 36415; 43235; 80048; 85025; 99285; J0330; J2001; J2250; J2704; J3010; J7040; 99283; A4620; J3490

== ENCOUNTER 2021-02-18 15:43 | Emergency (ER) | payer MEDICARE, MEDICAID ==
[~2021-02-18] VITALS: Ht 160 cm; Wt 60.9 kg
[~2021-02-18 15:43] MED LIST changes: -MONT10TA26 PO; +MONT10TA32 PO; +SENN-270 PO; -SENN1TAB PO
[2021-02-18 15:47] VITALS: BP 136/90
[2021-02-18] MEDS ORDERED: POLY17PO10 PO (19:13)
== END 2021-02-18 19:20 | disposition home or self-care (01) ==
LOC: ER 15:44
DX: K59.00 Constipation, unspecified (principal); J45.909 Unspecified asthma, uncomplicated; E11.9 Type 2 diabetes mellitus without complications; Z79.899 Other long term (current) drug therapy
CPT/HCPCS: 99282; 99283

== ENCOUNTER 2021-03-30 10:32 | Emergency (ER) | payer MEDICARE, MEDICAID ==
[~2021-03-30] VITALS: Ht 165.1 cm; Wt 57.5 kg
[~2021-03-30 10:32] MED LIST changes: +MONT-40 PO; -MONT10TA32 PO
[2021-03-30 12:29] VITALS: BP 159/99
--- NOTE | 2021-03-30 12:36 | NUR ---
SPOKE WITH DANIELA WARE REGARDING NEED FOR HEAD SCAN FOR THIS PT
[2021-03-30] MEDS ORDERED: acetaminophen 325mg/10.15ml oral unit dose solution PO ONE (15:25)
== END 2021-03-30 15:56 | disposition home or self-care (01) ==
LOC: ER 10:32
DX: R51.9 Headache, unspecified (principal); R10.9 Unspecified abdominal pain; F84.0 Autistic disorder; G40.909 Epilepsy, unspecified, not intractable, without status epilepticus; J45.909 Unspecified asthma, uncomplicated; E11.9 Type 2 diabetes mellitus without complications; Z79.899 Other long term (current) drug therapy; V87.7XXA Person injured in collision between other specified motor vehicles (traffic), initial encounter; Y93.89 Activity, other specified; Y92.89 Other specified places as the place of occurrence of the external cause; Y99.8 Other external cause status
CPT/HCPCS: 70450; 72125; 99284

== ENCOUNTER 2021-11-03 18:01 | Emergency (ER) | payer MEDICARE, MEDICAID ==
[~2021-11-03] VITALS: Ht 157.5 cm; Wt 60.0 kg
[2021-11-03 20:29] LABS: BASOPHILS % (AUTO) 0.2 % (0-1); EOSINOPHILS # (AUTO) 0.2 X10'3 (0-0.9); EOSINOPHILS % (AUTO) 1.9 % (0-6); HEMATOCRIT 38.6 % (35.0-45.0); HEMOGLOBIN 13.1 g/dl (12.0-16.0); LYMPHOCYTES # (AUTO) 2.3 X10'3 (1.1-4.8); LYMPHOCYTES % (AUTO) 20.9 % (21-51); MEAN CORPUSCULAR HEMOGLOBIN 28.2 PG (27.0-31.0); MEAN CORPUSCULAR HGB CONC 33.9 g/dL (33.0-36.5); MEAN PLATELET VOLUME 8.3 FL (7.4-10.4); MONOCYTES # (AUTO) 0.5 X10'3 (0-0.9); MONOCYTES % (AUTO) 4.2 % (2-12); NEUTROPHILS # (AUTO) 8.2 X10'3 (1.8-7.7); NEUTROPHILS % (AUTO) 72.8 % (42-75); PLATELET COUNT 287 X10'3 (140-440); RED BLOOD COUNT 4.65 X10'6 (4.20-5.60); RED CELL DISTRIBUTION WIDTH 12.5 % (11.5-14.5); WHITE BLOOD COUNT 11.2 X10'3 (4.5-11.0)
[2021-11-03 20:39] LABS: ALANINE AMINOTRANSFERASE 24 U/L (12-78); ALBUMIN 3.8 G/DL (3.4-5.0); ALKALINE PHOSPHATASE 32 IU/L (46-116); ANION GAP 11 (8-16); ASPARTATE AMINO TRANSFERASE 12 U/L (10-37); BILIRUBIN,TOTAL 0.5 MG/DL (0.1-1.0); BLOOD UREA NITROGEN 12 MG/DL (7-18); BUN/CREATININE RATIO 15.2 (6.6-38.0); CALCIUM 9.5 MG/DL (8.5-10.1); CHLORIDE 102 MMOL/L (99-107); CREATININE 0.79 MG/DL (0.40-0.90); GLUCOSE 161 MG/DL (70-104); LIPASE 98 U/L (73-393); POTASSIUM 3.8 MMOL/L (3.5-5.1); SODIUM 138 MMOL/L (135-145); TOTAL CARBON DIOXIDE 24.8 MMOL/L (24-32); TOTAL PROTEIN 7.7 G/DL (6.4-8.2); eGFR > 90 ML/MIN
[2021-11-03 20:48] LABS: CLARITY,URINE SLIGHTLY CLOUDY (Clear); COLOR,URINE YELLOW (Yellow); GLUCOSE, URINE 100 mg/dl (Neg); KETONES,URINE 15 mg/dl (Neg); LEUKOCYTE ESTERASE ,URINE TRACE (Neg); NITRITES, URINE NEGATIVE (Neg); OCCULT BLOOD,URINE NEGATIVE (Neg); PH,URINE 5.5 (4.8-8.0); PROTEIN,URINE 30 mg/dl (Neg); URINE HCG NEGATIVE (NEG); UROBILINOGEN,URINE 0.2 E.U/dL (0.2-1.0)
[2021-11-03 20:57] LABS: RBC,URINE 0-2 /HPF (0-2); UA COLLECTION TYPE OTHER; WBC,URINE NONE SEEN /HPF (0-4)
[2021-11-03 20:58] LABS: BACTERIA,URINE FEW /HPF (Neg); SQUAMOUS EPITHELIAL CELL,UR MODERATE /LPF (FEW)
[2021-11-03] MEDS ORDERED: cephalexin 250mg capsule PO ONE (22:10)
[2021-11-03] MEDS ORDERED: ondansetron 4mg rapidly disintigrating tab PO ONE (22:20)
[2021-11-03] MEDS ORDERED: CEPH-585 PO (23:56)
[2021-11-04 00:19] VITALS: BP 131/90
== END 2021-11-04 00:23 | disposition home or self-care (01) ==
LOC: ER 18:01
DX: N39.0 Urinary tract infection, site not specified (principal); R11.2 Nausea with vomiting, unspecified; J45.909 Unspecified asthma, uncomplicated; R62.50 Unspecified lack of expected normal physiological development in childhood; E11.9 Type 2 diabetes mellitus without complications; Z79.899 Other long term (current) drug therapy; Z79.2 Long term (current) use of antibiotics
CPT/HCPCS: 36415; 71045; 80053; 81001; 81025; 82948; 83690; 85025; 87502; 87503; 99284; 99285

== ENCOUNTER 2022-03-31 15:45 | Emergency (ER) | payer MEDICARE, MEDICAID ==
[~2022-03-31] VITALS: Ht 152.4 cm; Wt 55.0 kg
[~2022-03-31 15:45] MED LIST changes: -AMA1T PO; -CLON-528 PO; +CLON0.3T36 PO; -CLON0.3T47; +CLON1TAB12 PO; +FENO54TA PO; +GLIM2TAB6 PO; +LEVO1TAB PO; -LORA0.5T PO; -LORA10CA9 PO; +MAGN400T52 PO; +METF-438 PO; -MONT-40 PO; +ONDA4TAB12 PO; -ONDA4TAB6 PO; +OXYB5TAB16 PO; +PANT20TA18 PO; +QUET50TA24 PO; -SENN-270 PO; -VALP250S PO; -ZIPR20CA2 PO; +[UNRECOGNIZED DRUG - CODE] PO
[2022-03-31 15:55] VITALS: BP 138/86
[2022-03-31] MEDS ORDERED: diphenhydrAMINE 25 MG/10 ML UD oral solution PO ONE (18:40)
[2022-03-31] MEDS ORDERED: DIPH-518 PO (19:20)
== END 2022-03-31 19:59 | disposition home or self-care (01) ==
LOC: ER 15:46
DX: H10.13 Acute atopic conjunctivitis, bilateral (principal); J45.909 Unspecified asthma, uncomplicated; E11.9 Type 2 diabetes mellitus without complications
CPT/HCPCS: 99282; Q0163

== ENCOUNTER 2022-04-18 10:59 | Emergency (ER) | payer MEDICARE, MEDICAID ==
[~2022-04-18] VITALS: Ht 160 cm; Wt 55.5 kg
[~2022-04-18 10:59] MED LIST changes: +DIPH-518 PO
--- NOTE | 2022-04-18 11:42 | NUR ---
called to the lobby for seizure like activity, jerking movements noted, strong pulse and clear airway. Pt non verbal, but was able to make eye contact with me when patient's name stated, while jerking episode occurred.
[2022-04-18 13:42] LABS: BASOPHILS % (AUTO) 0.3 % (0-1); EOSINOPHILS # (AUTO) 0.1 X10'3 (0-0.9); EOSINOPHILS % (AUTO) 1.5 % (0-6); HEMATOCRIT 37.8 % (35.0-45.0); HEMOGLOBIN 12.2 g/dl (12.0-16.0); LYMPHOCYTES # (AUTO) 1.1 X10'3 (1.1-4.8); LYMPHOCYTES % (AUTO) 13.7 % (21-51); MEAN CORPUSCULAR HEMOGLOBIN 27.4 PG (27.0-31.0); MEAN CORPUSCULAR HGB CONC 32.3 g/dL (33.0-36.5); MEAN CORPUSCULAR VOLUME 84.6 FL (78-98); MONOCYTES # (AUTO) 0.5 X10'3 (0-0.9); MONOCYTES % (AUTO) 5.9 % (2-12); NEUTROPHILS # (AUTO) 6.4 X10'3 (1.8-7.7); NEUTROPHILS % (AUTO) 78.6 % (42-75); PLATELET COUNT 229 X10'3 (140-440); RED BLOOD COUNT 4.47 X10'6 (4.20-5.60); RED CELL DISTRIBUTION WIDTH 12.6 % (11.5-14.5); WHITE BLOOD COUNT 8.1 X10'3 (4.5-11.0)
[2022-04-18 13:45] LABS: MAGNESIUM 1.3 MG/DL (1.5-2.4)
[2022-04-18] MEDS ORDERED: ringers solution, lacted 1,000 ML IV ONE (14:05)
[2022-04-18] MEDS ORDERED: magnesium 2GM in 50ml NS 50 ML IV ONE (17:20)
[2022-04-18 17:48] LABS: CLARITY,URINE SLIGHTLY CLOUDY (Clear); COLOR,URINE YELLOW (Yellow); GLUCOSE, URINE 100 mg/dl (Neg); KETONES,URINE NEGATIVE (Neg); LEUKOCYTE ESTERASE ,URINE NEGATIVE (Neg); NITRITES, URINE NEGATIVE (Neg); OCCULT BLOOD,URINE NEGATIVE (Neg); PH,URINE 7.5 (4.8-8.0); PROTEIN,URINE NEGATIVE (Neg)
[2022-04-18 17:54] LABS: UA COLLECTION TYPE VOIDED
[2022-04-18 17:55] LABS: MUCUS STRANDS FEW /LPF (Neg); SQUAMOUS EPITHELIAL CELL,UR MANY /LPF (FEW)
[2022-04-18 17:57] LABS: BACTERIA,URINE 1+ /HPF (Neg); RBC,URINE 0-2 /HPF (0-2); YEAST FEW /HPF (NEGATIVE)
[2022-04-18 18:00] VITALS: BP 118/85
[2022-04-18] MEDS ORDERED: amox tr/potassium clavulanate 500mg/125mg TAB PO ONE (18:10)
[2022-04-18] MEDS ORDERED: HYDROcodone & chlorphen. 10-8mg/5ml oral susp. PO ONE (18:10)
[2022-04-18] MEDS ORDERED: MAGN64TA8 PO (18:17)
[2022-04-18] MEDS ORDERED: DEXT15LI15 PO (18:17)
[2022-04-18] MEDS ORDERED: AMOX-419 PO (18:17)
[2022-04-18] MEDS ORDERED: guaiFENesin/DM 10ml UD oral syrup PO ONE (18:30)
== END 2022-04-18 19:38 | disposition home or self-care (01) ==
LOC: ER 11:00
DX: R00.0 Tachycardia, unspecified (principal); Z20.822 Contact with and (suspected) exposure to COVID-19; N39.0 Urinary tract infection, site not specified; J06.9 Acute upper respiratory infection, unspecified; E83.42 Hypomagnesemia; R05.9 Cough, unspecified; J45.909 Unspecified asthma, uncomplicated; K21.9 Gastro-esophageal reflux disease without esophagitis; E11.9 Type 2 diabetes mellitus without complications; Z88.8 Allergy status to other drugs, medicaments and biological substances
CPT/HCPCS: 36415; 71045; 81001; 83735; 83880; 84484; 85025; 87502; 87503; 87635; 93005; 96361; 96365; 96366; 99285; C9803; J3475; J7120

== ENCOUNTER 2022-05-20 13:33 | Emergency (ER) | payer MEDICARE, MEDICAID ==
[~2022-05-20] VITALS: Ht 157.5 cm; Wt 55.5 kg
[~2022-05-20 13:33] MED LIST changes: +DEXT15LI15 PO; +MAGN64TA8 PO
--- NOTE | 2022-05-20 14:14 | NUR ---
REPORT FILED WITH [facility]{DISPATCH- MATTHEW} CASE NO [id number] .
[2022-05-20] MEDS ORDERED: acetaminophen 325mg/10.15ml oral unit dose solution PO ONE (17:30)
== END 2022-05-20 17:42 | disposition home or self-care (01) ==
LOC: ER 13:33
DX: S09.90XA Unspecified injury of head, initial encounter (principal); K21.9 Gastro-esophageal reflux disease without esophagitis; J45.909 Unspecified asthma, uncomplicated; F31.9 Bipolar disorder, unspecified; E11.9 Type 2 diabetes mellitus without complications; W22.8XXA Striking against or struck by other objects, initial encounter; Y93.89 Activity, other specified; Y92.89 Other specified places as the place of occurrence of the external cause; Y99.8 Other external cause status
CPT/HCPCS: 70450; 99284

== ENCOUNTER 2022-06-29 17:28 | Emergency (ER) | payer MEDICARE, MEDICAID ==
[~2022-06-29] VITALS: Ht 160 cm; Wt 53.2 kg
[2022-06-29] MEDS ORDERED: metoclopramide 5mg/5ml oral solution PO STA (19:18)
[2022-06-29] MEDS ORDERED: ibuprofen 100 MG/5 ML oral susp PO ONE (20:50)
[2022-06-29 22:06] VITALS: BP 115/68
== END 2022-06-29 22:07 | disposition home or self-care (01) ==
LOC: ER 17:28
DX: G44.209 Tension-type headache, unspecified, not intractable (principal); J45.909 Unspecified asthma, uncomplicated; K21.9 Gastro-esophageal reflux disease without esophagitis; E11.9 Type 2 diabetes mellitus without complications; Z88.8 Allergy status to other drugs, medicaments and biological substances
CPT/HCPCS: 99283; J8597

== ENCOUNTER 2022-10-18 16:26 | Emergency (ER) | payer MEDICARE, MEDICAID ==
[~2022-10-18] VITALS: Ht 165.1 cm; Wt 63.6 kg
[2022-10-18] MEDS ORDERED: acetaminophen 325mg tablet PO ONE (17:25)
[2022-10-18 17:28] LABS: BASOPHILS % (AUTO) 0.2 % (0-1); EOSINOPHILS # (AUTO) 0.1 X10'3 (0-0.9); EOSINOPHILS % (AUTO) 1.4 % (0-6); HEMATOCRIT 45.5 % (35.0-45.0); HEMOGLOBIN 15.3 g/dl (12.0-16.0); LYMPHOCYTES # (AUTO) 1.6 X10'3 (1.1-4.8); LYMPHOCYTES % (AUTO) 26.3 % (21-51); MEAN CORPUSCULAR HEMOGLOBIN 28.7 PG (27.0-31.0); MEAN CORPUSCULAR HGB CONC 33.7 g/dL (33.0-36.5); MEAN PLATELET VOLUME 8.2 FL (7.4-10.4); MONOCYTES # (AUTO) 0.4 X10'3 (0-0.9); MONOCYTES % (AUTO) 6.4 % (2-12); NEUTROPHILS % (AUTO) 65.7 % (42-75); PLATELET COUNT 255 X10'3 (140-440); RED BLOOD COUNT 5.35 X10'6 (4.20-5.60); RED CELL DISTRIBUTION WIDTH 13.2 % (11.5-14.5); WHITE BLOOD COUNT 6.1 X10'3 (4.5-11.0)
[2022-10-18 17:32] LABS: ALANINE AMINOTRANSFERASE 30 U/L (12-78); ALBUMIN 4.4 G/DL (3.4-5.0); ALKALINE PHOSPHATASE 42 IU/L (46-116); ANION GAP 7 (8-16); ASPARTATE AMINO TRANSFERASE 9 U/L (10-37); BILIRUBIN,TOTAL 0.7 MG/DL (0.1-1.0); BLOOD UREA NITROGEN 19 MG/DL (7-18); CALCIUM 9.9 MG/DL (8.5-10.1); CHLORIDE 99 MMOL/L (99-107); GLUCOSE 203 MG/DL (70-104); LIPASE 134 U/L (73-393); POTASSIUM 4.1 MMOL/L (3.5-5.1); SODIUM 136 MMOL/L (135-145); TOTAL CARBON DIOXIDE 29.6 MMOL/L (24-32); TOTAL PROTEIN 8.7 G/DL (6.4-8.2); eGFR 69 ML/MIN
[2022-10-18 18:51] LABS: COLOR,URINE YELLOW (Yellow); GLUCOSE, URINE NEGATIVE (Neg); KETONES,URINE NEGATIVE (Neg); LEUKOCYTE ESTERASE ,URINE NEGATIVE (Neg); NITRITES, URINE NEGATIVE (Neg); OCCULT BLOOD,URINE TRACE-INTACT (Neg); PH,URINE 6.5 (4.8-8.0); PROTEIN,URINE NEGATIVE (Neg); UROBILINOGEN,URINE 0.2 E.U/dL (0.2-1.0)
[2022-10-18 18:52] LABS: URINE HCG NEGATIVE (NEG)
[2022-10-18] MEDS ORDERED: LORazepam 1 MG tablet PO ONE (18:55)
[2022-10-18 19:07] LABS: CLARITY,URINE SLIGHTLY CLOUDY (Clear); UA COLLECTION TYPE URINAL
[2022-10-18 19:08] LABS: BACTERIA,URINE FEW /HPF (Neg); MUCUS STRANDS FEW /LPF (Neg); RBC,URINE 0-2 /HPF (0-2); SQUAMOUS EPITHELIAL CELL,UR FEW /LPF (FEW); TRANSITIONAL EPI CELLS,URINE FEW /HPF
[2022-10-18] MEDS ORDERED: cephalexin 250mg capsule PO ONE (19:15)
[2022-10-18] MEDS ORDERED: CEPH500C2 PO (19:16)
[2022-10-18 19:32] VITALS: BP 125/89
== END 2022-10-18 19:34 | disposition home or self-care (01) ==
LOC: ER 16:26
DX: N39.0 Urinary tract infection, site not specified (principal); J45.909 Unspecified asthma, uncomplicated; K21.9 Gastro-esophageal reflux disease without esophagitis; E11.9 Type 2 diabetes mellitus without complications; Z88.8 Allergy status to other drugs, medicaments and biological substances
CPT/HCPCS: 36415; 80053; 81001; 81025; 83690; 85025; 87088; 99284

== ENCOUNTER 2022-11-29 17:28 | Emergency (ER) | payer MEDICARE, MEDICAID ==
[~2022-11-29] VITALS: Ht 160 cm; Wt 57.3 kg
[2022-11-29 17:44] VITALS: BP 124/84
[2022-11-29] MEDS ORDERED: ERYT1OIN6 RIGHTEYE (19:04)
[2022-11-29] MEDS ORDERED: erythromycin ophthalmic ointment 1gm tube RIGHTEYE ONE (19:15)
== END 2022-11-29 19:30 | disposition home or self-care (01) ==
LOC: ER 17:28
DX: H10.89 Other conjunctivitis (principal); J45.909 Unspecified asthma, uncomplicated; K21.9 Gastro-esophageal reflux disease without esophagitis; E11.9 Type 2 diabetes mellitus without complications; Z88.8 Allergy status to other drugs, medicaments and biological substances
CPT/HCPCS: 99283

== ENCOUNTER 2023-04-18 12:53 | Emergency (ER) | payer MEDICARE, MEDICAID ==
[~2023-04-18] VITALS: Ht 160 cm; Wt 58.6 kg
[2023-04-18 13:04] VITALS: BP 111/79; PULSE 98; RESP 16; O2SAT 98
--- NOTE | 2023-04-18 13:38 | NUR ---
PATIENT SITTING UP IN WHEELCHAIR IN EXAM ROOM, ALERT TO SELF AND PEOPLE AROUND HER. RR 12-14. SKIN COLOR IS WNL, NO SIGNS OF PAIN OR RR DISTRESS. MOTHER ALSO PRESENT IN ROOM.
[2023-04-18 13:57] LABS: ALANINE AMINOTRANSFERASE 24 U/L (12-78); ALBUMIN 3.6 G/DL (3.4-5.0); ALBUMIN/GLOBULIN RATIO 0.9 (1.1-1.5); ALKALINE PHOSPHATASE 47 IU/L (46-116); ANION GAP 8 (8-16); ASPARTATE AMINO TRANSFERASE 11 U/L (10-37); BILIRUBIN,TOTAL 0.6 MG/DL (0.1-1.0); BLOOD UREA NITROGEN 15 MG/DL (7-18); BUN/CREATININE RATIO 16.7 (10.0-20.0); CALCIUM 9.5 MG/DL (8.5-10.1); CHLORIDE 101 MMOL/L (99-107); GLUCOSE 161 MG/DL (70-104); POTASSIUM 3.9 MMOL/L (3.5-5.1); SODIUM 135 MMOL/L (135-145); TOTAL CARBON DIOXIDE 26.2 MMOL/L (24-32); TOTAL PROTEIN 7.7 G/DL (6.4-8.2); eCRCL 80 ML/MIN; eGFR 77 ML/MIN
[2023-04-18 14:05] LABS: BASOPHILS % (AUTO) 0.3 % (0-1); EOSINOPHILS # (AUTO) 0.1 X10'3 (0-0.9); EOSINOPHILS % (AUTO) 1.8 % (0-6); HEMATOCRIT 37.4 % (35.0-45.0); HEMOGLOBIN 12.5 g/dl (12.0-16.0); LYMPHOCYTES # (AUTO) 1.5 X10'3 (1.1-4.8); LYMPHOCYTES % (AUTO) 21.3 % (21-51); MEAN CORPUSCULAR HEMOGLOBIN 28.2 PG (27.0-31.0); MEAN CORPUSCULAR HGB CONC 33.4 g/dL (33.0-36.5); MEAN CORPUSCULAR VOLUME 84.5 FL (78-98); MONOCYTES # (AUTO) 0.3 X10'3 (0-0.9); MONOCYTES % (AUTO) 4.3 % (2-12); NEUTROPHILS # (AUTO) 5.3 X10'3 (1.8-7.7); NEUTROPHILS % (AUTO) 72.3 % (42-75); PLATELET COUNT 259 X10'3 (140-440); RED BLOOD COUNT 4.43 X10'6 (4.20-5.60); WHITE BLOOD COUNT 7.3 X10'3 (4.5-11.0)
[2023-04-18 15:27] VITALS: TEMP 98.3
== END 2023-04-18 15:48 | disposition home or self-care (01) ==
LOC: ER 12:54
DX: S90.512A Abrasion, left ankle, initial encounter (principal); Z88.8 Allergy status to other drugs, medicaments and biological substances; W19.XXXA Unspecified fall, initial encounter; Y93.89 Activity, other specified; Y92.89 Other specified places as the place of occurrence of the external cause; Y99.8 Other external cause status
CPT/HCPCS: 36415; 73630; 80053; 85025; 99284

== ENCOUNTER 2023-05-02 13:54 | Emergency (ER) | payer MEDICARE, MEDICAID ==
[~2023-05-02] VITALS: Ht 157.5 cm; Wt 56.0 kg
[2023-05-02 13:55] VITALS: TEMP 97.6
[2023-05-02 14:44] LABS: BASOPHILS % (AUTO) 0.4 % (0-1); EOSINOPHILS # (AUTO) 0.2 X10'3 (0-0.9); EOSINOPHILS % (AUTO) 1.9 % (0-6); HEMATOCRIT 39.2 % (35.0-45.0); LYMPHOCYTES # (AUTO) 2.1 X10'3 (1.1-4.8); MEAN CORPUSCULAR HEMOGLOBIN 28.3 PG (27.0-31.0); MEAN CORPUSCULAR HGB CONC 33.2 g/dL (33.0-36.5); MEAN CORPUSCULAR VOLUME 85.3 FL (78-98); MEAN PLATELET VOLUME 8.5 FL (7.4-10.4); MONOCYTES # (AUTO) 0.5 X10'3 (0-0.9); MONOCYTES % (AUTO) 6.4 % (2-12); NEUTROPHILS # (AUTO) 5.2 X10'3 (1.8-7.7); NEUTROPHILS % (AUTO) 65.3 % (42-75); PLATELET COUNT 247 X10'3 (140-440); RED CELL DISTRIBUTION WIDTH 13.4 % (11.5-14.5); WHITE BLOOD COUNT 7.9 X10'3 (4.5-11.0)
[2023-05-02 15:01] LABS: ALANINE AMINOTRANSFERASE 12 U/L (12-78); ALBUMIN 3.5 G/DL (3.4-5.0); ALBUMIN/GLOBULIN RATIO 0.9 (1.1-1.5); ALKALINE PHOSPHATASE 35 IU/L (46-116); ANION GAP 12 (8-16); ASPARTATE AMINO TRANSFERASE 15 U/L (10-37); BILIRUBIN,TOTAL 0.7 MG/DL (0.1-1.0); BLOOD UREA NITROGEN 12 MG/DL (7-18); BUN/CREATININE RATIO 12.6 (10.0-20.0); CALCIUM 9.3 MG/DL (8.5-10.1); CHLORIDE 104 MMOL/L (99-107); CREATININE 0.95 MG/DL (0.40-0.90); GLUCOSE 102 MG/DL (70-104); LIPASE 28 U/L (16-77); POTASSIUM 3.4 MMOL/L (3.5-5.1); SODIUM 138 MMOL/L (135-145); TOTAL CARBON DIOXIDE 22.2 MMOL/L (24-32); TOTAL PROTEIN 7.5 G/DL (6.4-8.2); eCRCL 72 ML/MIN; eGFR 72 ML/MIN
[2023-05-02] MEDS ORDERED: dicyclomine 10mg/ml 2ml ampule IM ONE (15:20)
[2023-05-02] MEDS ORDERED: acetaminophen 325mg/10.15ml oral unit dose solution PO ONE (15:35)
[2023-05-02 15:48] VITALS: BP 134/85; PULSE 104; RESP 16; O2SAT 99
== END 2023-05-02 15:50 | disposition home or self-care (01) ==
LOC: ER 13:55
DX: R19.7 Diarrhea, unspecified (principal); R11.10 Vomiting, unspecified; R50.9 Fever, unspecified
CPT/HCPCS: 36415; 80053; 83690; 85025; 96372; 99283; J0500

== ENCOUNTER 2023-07-26 18:29 | Emergency (ER) | payer MEDICARE, MEDICAID ==
[~2023-07-26] VITALS: Ht 157.5 cm; Wt 55.0 kg
[~2023-07-26 18:29] MED LIST changes: -OXYB5TAB16 PO; +OXYB5TAB21 PO
[2023-07-26] MEDS ORDERED: LACT10SO3 PO (20:45)
[2023-07-26 20:55] VITALS: BP 116/77; PULSE 101; RESP 18; TEMP 98.4; O2SAT 98
== END 2023-07-26 20:59 | disposition home or self-care (01) ==
LOC: ER 18:30
DX: K59.00 Constipation, unspecified (principal); J45.909 Unspecified asthma, uncomplicated; K21.9 Gastro-esophageal reflux disease without esophagitis; E11.9 Type 2 diabetes mellitus without complications; F41.9 Anxiety disorder, unspecified; Z88.8 Allergy status to other drugs, medicaments and biological substances; Z79.899 Other long term (current) drug therapy
CPT/HCPCS: 99284

== ENCOUNTER 2023-09-06 09:07 | Emergency (ER) | payer MEDICARE, MEDICAID ==
[~2023-09-06] VITALS: Ht 165.1 cm; Wt 59.0 kg
[~2023-09-06 09:07] MED LIST changes: +LACT10SO3 PO
[2023-09-06 09:57] VITALS: TEMP 97.8
[2023-09-06 11:43] LABS: BASOPHILS # (AUTO) 0.1 X10'3 (0-0.2); BASOPHILS % (AUTO) 0.4 % (0-1); EOSINOPHILS # (AUTO) 0.1 X10'3 (0-0.9); EOSINOPHILS % (AUTO) 0.9 % (0-6); HEMATOCRIT 36.1 % (35.0-45.0); HEMOGLOBIN 12.1 g/dl (12.0-16.0); LYMPHOCYTES # (AUTO) 1.7 X10'3 (1.1-4.8); LYMPHOCYTES % (AUTO) 14.3 % (21-51); MEAN CORPUSCULAR HEMOGLOBIN 28.5 PG (27.0-31.0); MEAN CORPUSCULAR HGB CONC 33.6 g/dL (33.0-36.5); MEAN CORPUSCULAR VOLUME 84.9 FL (78-98); MEAN PLATELET VOLUME 8.4 FL (7.4-10.4); MONOCYTES # (AUTO) 0.4 X10'3 (0-0.9); MONOCYTES % (AUTO) 3.5 % (2-12); NEUTROPHILS # (AUTO) 9.5 X10'3 (1.8-7.7); NEUTROPHILS % (AUTO) 80.9 % (42-75); PLATELET COUNT 273 X10'3 (140-440); RED BLOOD COUNT 4.25 X10'6 (4.20-5.60); RED CELL DISTRIBUTION WIDTH 12.2 % (11.5-14.5); WHITE BLOOD COUNT 11.7 X10'3 (4.5-11.0)
[2023-09-06 11:59] LABS: ALANINE AMINOTRANSFERASE 15 U/L (12-78); ALBUMIN 3.2 G/DL (3.4-5.0); ALBUMIN/GLOBULIN RATIO 0.7 (1.1-1.5); ALKALINE PHOSPHATASE 36 IU/L (46-116); ANION GAP 9 (8-16); ASPARTATE AMINO TRANSFERASE 8 U/L (10-37); BILIRUBIN,TOTAL 0.5 MG/DL (0.1-1.0); BLOOD UREA NITROGEN 15 MG/DL (7-18); BUN/CREATININE RATIO 14.2 (10.0-20.0); CALCIUM 9.3 MG/DL (8.5-10.1); CHLORIDE 101 MMOL/L (99-107); CREATININE 1.06 MG/DL (0.40-0.90); GLUCOSE 211 MG/DL (70-104); POTASSIUM 4.7 MMOL/L (3.5-5.1); SODIUM 136 MMOL/L (135-145); TOTAL CARBON DIOXIDE 25.7 MMOL/L (24-32); TOTAL PROTEIN 7.7 G/DL (6.4-8.2); eCRCL 74 ML/MIN; eGFR 64 ML/MIN
[2023-09-06] MEDS: ALPRAZolam 0.5mg tablet PO ONE ×2 (12:50→15:48)
[2023-09-06] MEDS: normal saline 1000ml 1,000 ML IV ONE (15:47)
[2023-09-06] MEDS: levetiracetam inj 1,000 MG in normal saline 100ml IV soln 100 ML IV ONE (16:12)
[2023-09-06] MEDS ORDERED: KEP500T PO (16:12)
[2023-09-06 18:04] VITALS: BP 104/80; PULSE 111; RESP 18; O2SAT 98
== END 2023-09-06 18:08 | disposition home or self-care (01) ==
LOC: ER 09:08
DX: R56.9 Unspecified convulsions (principal); J45.909 Unspecified asthma, uncomplicated; K21.9 Gastro-esophageal reflux disease without esophagitis; E11.9 Type 2 diabetes mellitus without complications; F41.9 Anxiety disorder, unspecified; Z88.8 Allergy status to other drugs, medicaments and biological substances
CPT/HCPCS: 36415; 70450; 80053; 82948; 85025; 93005; 96365; 96366; 99285; J1953; J3490; J7030

== ENCOUNTER 2023-10-06 15:20 | Emergency (ER) | payer MEDICARE, MEDICAID ==
[~2023-10-06] VITALS: Ht 167.6 cm; Wt 63.6 kg
[~2023-10-06 15:20] MED LIST changes: +KEP500T PO
[2023-10-06] MEDS ORDERED: LIDOcaine 2% 10ml TOPICAL JELLY (Urojet) TP ONE (17:25)
[2023-10-06] MEDS: LidoCAINE 2% Topical Jelly 11mL syringe (UROJET) TOP ONE (17:30)
[2023-10-06 19:21] LABS: BASOPHILS # (AUTO) 0.1 X10'3 (0-0.2); BASOPHILS % (AUTO) 0.7 % (0-1); EOSINOPHILS # (AUTO) 0.1 X10'3 (0-0.9); EOSINOPHILS % (AUTO) 0.7 % (0-6); HEMATOCRIT 36.5 % (35.0-45.0); HEMOGLOBIN 12.1 g/dl (12.0-16.0); LYMPHOCYTES # (AUTO) 2.1 X10'3 (1.1-4.8); LYMPHOCYTES % (AUTO) 21.2 % (21-51); MEAN CORPUSCULAR HEMOGLOBIN 27.9 PG (27.0-31.0); MEAN CORPUSCULAR HGB CONC 33.2 g/dL (33.0-36.5); MEAN PLATELET VOLUME 8.5 FL (7.4-10.4); MONOCYTES # (AUTO) 0.5 X10'3 (0-0.9); MONOCYTES % (AUTO) 5.2 % (2-12); NEUTROPHILS # (AUTO) 7.3 X10'3 (1.8-7.7); NEUTROPHILS % (AUTO) 72.2 % (42-75); PLATELET COUNT 285 X10'3 (140-440); RED BLOOD COUNT 4.34 X10'6 (4.20-5.60); RED CELL DISTRIBUTION WIDTH 12.4 % (11.5-14.5); WHITE BLOOD COUNT 10.1 X10'3 (4.5-11.0)
[2023-10-06 19:29] LABS: HCG SERUM QL NEGATIVE
[2023-10-06 19:45] LABS: APTT 22 SECONDS (22-32); PROTHROMBIN TIME 10.9 SECONDS (9.0-12.0)
[2023-10-06 20:26] LABS: ALANINE AMINOTRANSFERASE 10 U/L (12-78); ALBUMIN 3.5 G/DL (3.4-5.0); ALBUMIN/GLOBULIN RATIO 0.8 (1.1-1.5); ALKALINE PHOSPHATASE 36 IU/L (46-116); ANION GAP 10 (8-16); ASPARTATE AMINO TRANSFERASE 11 U/L (10-37); BILIRUBIN,TOTAL 0.8 MG/DL (0.1-1.0); BLOOD UREA NITROGEN 14 MG/DL (7-18); CHLORIDE 101 MMOL/L (99-107); GLUCOSE 104 MG/DL (70-104); SODIUM 134 MMOL/L (135-145); TOTAL CARBON DIOXIDE 23.2 MMOL/L (24-32); TOTAL PROTEIN 7.7 G/DL (6.4-8.2)
[2023-10-06 20:42] LABS: BUN/CREATININE RATIO 17.7 (10.0-20.0); CALCIUM 9.5 MG/DL (8.5-10.1); CREATININE 0.79 MG/DL (0.40-0.90); POTASSIUM 3.9 MMOL/L (3.5-5.1); eCRCL 103 ML/MIN; eGFR 89 ML/MIN
[2023-10-06 21:34] VITALS: BP 100/56; PULSE 81; RESP 16; TEMP 98.4; O2SAT 99
== END 2023-10-06 22:01 | disposition home or self-care (01) ==
LOC: ER 15:20
DX: R56.9 Unspecified convulsions (principal); T42.6X5A Adverse effect of other antiepileptic and sedative-hypnotic drugs, initial encounter; J45.909 Unspecified asthma, uncomplicated; K21.9 Gastro-esophageal reflux disease without esophagitis; E11.9 Type 2 diabetes mellitus without complications; Z88.8 Allergy status to other drugs, medicaments and biological substances; Z79.899 Other long term (current) drug therapy; Y92.89 Other specified places as the place of occurrence of the external cause
CPT/HCPCS: 36415; 71045; 74176; 80053; 83605; 84145; 84484; 84703; 85025; 85610; 85730; 87040; 93005; 99285; A4314

== ENCOUNTER 2023-10-13 10:24 | Inpatient (IN) | payer MEDICARE, MEDICAID ==
[~2023-10-13] VITALS: Ht 162.6 cm; Wt 63.0 kg
[2023-10-13 13:19] LABS: BASOPHILS % (AUTO) 0.3 % (0-1); EOSINOPHILS # (AUTO) 0.1 X10'3 (0-0.9); EOSINOPHILS % (AUTO) 1.2 % (0-6); HEMOGLOBIN 13.4 g/dl (12.0-16.0); LYMPHOCYTES # (AUTO) 1.3 X10'3 (1.1-4.8); LYMPHOCYTES % (AUTO) 15.5 % (21-51); MEAN CORPUSCULAR HEMOGLOBIN 27.7 PG (27.0-31.0); MEAN CORPUSCULAR HGB CONC 32.6 g/dL (33.0-36.5); MEAN CORPUSCULAR VOLUME 84.8 FL (78-98); MEAN PLATELET VOLUME 8.2 FL (7.4-10.4); MONOCYTES # (AUTO) 0.4 X10'3 (0-0.9); MONOCYTES % (AUTO) 5.2 % (2-12); NEUTROPHILS # (AUTO) 6.6 X10'3 (1.8-7.7); NEUTROPHILS % (AUTO) 77.8 % (42-75); PLATELET COUNT 279 X10'3 (140-440); RED BLOOD COUNT 4.84 X10'6 (4.20-5.60); RED CELL DISTRIBUTION WIDTH 12.9 % (11.5-14.5); WHITE BLOOD COUNT 8.4 X10'3 (4.5-11.0)
[2023-10-13 13:33] LABS: ALBUMIN 3.8 G/DL (3.4-5.0); ANION GAP 8 (8-16); BLOOD UREA NITROGEN 11 MG/DL (7-18); BUN/CREATININE RATIO 14.3 (10.0-20.0); CALCIUM 9.8 MG/DL (8.5-10.1); CHLORIDE 102 MMOL/L (99-107); CREATININE 0.77 MG/DL (0.40-0.90); ETHANOL < 10 MG/DL (<10); GLUCOSE 182 MG/DL (70-104); POTASSIUM 4.5 MMOL/L (3.5-5.1); SODIUM 136 MMOL/L (135-145); TOTAL CARBON DIOXIDE 25.6 MMOL/L (24-32); eCRCL 97 ML/MIN; eGFR > 90 ML/MIN
[2023-10-13 13:46] LABS: HCG SERUM QL NEGATIVE
[2023-10-13] MEDS: normal saline 1000ml 1,000 ML IV ONE ×2 (13:47→14:49)
[2023-10-13] MEDS: phenobarbital sod 130mg/ml inj. IV ONE ×2 (15:15→15:55)
[2023-10-13 15:56] LABS: BILIRUBIN,URINE SMALL (Neg); CLARITY,URINE TURBID (Clear); COLOR,URINE YELLOW (Yellow); GLUCOSE, URINE 100 mg/dl (Neg); KETONES,URINE NEGATIVE (Neg); LEUKOCYTE ESTERASE ,URINE LARGE (Neg); NITRITES, URINE NEGATIVE (Neg); OCCULT BLOOD,URINE MODERATE (Neg); PH,URINE 7.5 (4.8-8.0); PROTEIN,URINE TRACE mg/dl (Neg)
[2023-10-13 16:06] LABS: UA COLLECTION TYPE VOIDED
[2023-10-13 16:09] LABS: AMORPHOUS PHOSPHATES 1+; BACTERIA,URINE 4+ /HPF (Neg); SQUAMOUS EPITHELIAL CELL,UR FEW /LPF (FEW)
[2023-10-13 16:10] LABS: TRIPLE PHOSPHATE CRYST 1+ /HPF (NEGATIVE)
[2023-10-13 16:53] LABS: URINE AMPHETAMINE SCREEN NEGATIVE (Neg); URINE BARBITUATE SCREEN NEGATIVE (Neg); URINE BENZODIAZEPINES SCREEN NEGATIVE (Neg); URINE CANNABINOID SCREEN NEGATIVE (Neg); URINE COCAINE SCREEN NEGATIVE (Neg); URINE METHADONE SCREEN NEGATIVE (Neg); URINE OPIATE SCREEN NEGATIVE (Neg); URINE PHENCYCLIDINE SCREEN NEGATIVE (Neg)
[2023-10-13] MEDS ORDERED: PIOG30TA71 PO (17:26)
[2023-10-13] MEDS ORDERED: acetaminophen 325mg tablet PO PRN ×2 (17:45)
[2023-10-13] MEDS ORDERED: HYDROcodone/acetaminophen 10/325mg tab PO PRN (17:45)
[2023-10-13] MEDS ORDERED: magnesium hydroxide 30ml (MOM) UD suspension PO PRN (17:45)
[2023-10-13] MEDS ORDERED: HYDROcodone/acetaminophen 5mg/325mg tablet PO PRN (17:45)
[2023-10-13] MEDS ORDERED: magnesium Cl slow-release 64mg tablet PO PRN (17:45)
[2023-10-13] MEDS ORDERED: magnesium 2GM in 50ml NS 50 ML IV PRN (17:45)
[2023-10-13] MEDS ORDERED: mag hydrox/Alum hydrox/simeth 30ml oral suspension PO PRN (17:45)
[2023-10-13] MEDS ORDERED: morphine 2 MG/ML inj. syringe IV PRN (17:45)
[2023-10-13] MEDS ORDERED: potassium Cl 20 mEq SR tablet PO PRN ×2 (17:45)
[2023-10-13] MEDS ORDERED: LEVE500T PO (17:57)
[2023-10-13] MEDS ORDERED: LACT10SO78 PO (17:58)
[2023-10-13] MEDS ORDERED: glucagon, human recombinant 1mg kit SUBCUT PRN (18:05)
[2023-10-13] MEDS ORDERED: diphenhydrAMINE 25 MG/10 ML UD oral solution PO PRN (18:05)
[2023-10-13] MEDS ORDERED: DEXTROSE 15 GM of carb/4 tabs (each vial/BOTTLE has 4 tablets) PO PRN ×2 (18:05)
[2023-10-13] MEDS ORDERED: lactulose 20gm/30ml cup PO PRN (18:05)
[2023-10-13] MEDS ORDERED: dextrose 50%-water 50ml dispensing syringe IV PRN ×2 (18:05)
[2023-10-13] MEDS: normal saline 1000ml 1,000 ML IV SCH (18:28)
[2023-10-13] MEDS: CefTRIAXone/D5W-Rocephin 1gm 50 ML IV SCH (18:28)
[2023-10-13] MEDS ORDERED: phenobarbital inj 130 MG in normal saline 100ml IV soln 99 ML IV ONE (20:00)
[2023-10-13] MEDS: K and/or MAG REPLACEMENT MC SCH (20:00)
[2023-10-13] MEDS: INSULIN LISPRO 100 UNIT/ML INSULN.PEN MULTI-DOSE SQ SCH (20:36)
[2023-10-13] MEDS: insulin glargine (Lantus) pen - multi-dose SQ SCH (21:00)
[2023-10-13] MEDS: cloNIDine 0.1 mg tablet PO SCH (21:00)
[2023-10-13] MEDS: propranolol 10mg tablet PO SCH (21:00)
[2023-10-13] MEDS: enoxaparin 40mg/0.4ml syringe SQ SCH (22:40)
[2023-10-13] MEDS ORDERED: diazepam inj 5 MG/ML inj. IV PRN (23:50)
[2023-10-14 00:10] VITALS: BP 135/90; PULSE 92; RESP 17; TEMP 97.8; O2SAT 99
[2023-10-14] MEDS ORDERED: HYDROcodone/acetaminophen 10/325mg tab PO PRN (00:55)
[2023-10-14] MEDS ORDERED: HYDROcodone/acetaminophen 5mg/325mg tablet PO PRN (01:00)
[2023-10-14] MEDS: morphine 2 MG/ML inj. syringe IV PRN (01:10)
[2023-10-14 05:11] VITALS: RESP 16; O2SAT 94
[2023-10-14 06:00] VITALS: BP 132/84; PULSE 90; RESP 16; TEMP 98.7; O2SAT 100
[2023-10-14 07:53] LABS: BASOPHILS % (AUTO) 0.2 % (0-1); EOSINOPHILS # (AUTO) 0.1 X10'3 (0-0.9); EOSINOPHILS % (AUTO) 1.4 % (0-6); HEMOGLOBIN 11.2 g/dl (12.0-16.0); LYMPHOCYTES # (AUTO) 1.5 X10'3 (1.1-4.8); LYMPHOCYTES % (AUTO) 21.4 % (21-51); MEAN CORPUSCULAR HEMOGLOBIN 27.7 PG (27.0-31.0); MEAN CORPUSCULAR HGB CONC 32.8 g/dL (33.0-36.5); MEAN CORPUSCULAR VOLUME 84.4 FL (78-98); MEAN PLATELET VOLUME 8.3 FL (7.4-10.4); MONOCYTES # (AUTO) 0.5 X10'3 (0-0.9); MONOCYTES % (AUTO) 7.4 % (2-12); NEUTROPHILS # (AUTO) 4.7 X10'3 (1.8-7.7); NEUTROPHILS % (AUTO) 69.6 % (42-75); PLATELET COUNT 184 X10'3 (140-440); RED BLOOD COUNT 4.03 X10'6 (4.20-5.60); RED CELL DISTRIBUTION WIDTH 12.5 % (11.5-14.5); WHITE BLOOD COUNT 6.8 X10'3 (4.5-11.0)
[2023-10-14 07:59] LABS: APTT 31 SECONDS (22-32); INR 1.1 INR; PROTHROMBIN TIME 11.3 SECONDS (9.0-12.0)
[2023-10-14 08:00] VITALS: RESP 16; O2SAT 100
[2023-10-14] MEDS: oxybutynin 5mg tablet PO SCH (08:00)
[2023-10-14] MEDS: LEVONORGESTREL ETHIN ESTRADIOL PO SCH (08:00)
[2023-10-14] MEDS: pantoprazole 40mg Tablet.DR PO SCH (08:00)
[2023-10-14] MEDS: fenofibrate 48mg tablet PO SCH (08:00)
[2023-10-14] MEDS: ondansetron/PF 4mg/2ml inj IV PRN (08:04)
[2023-10-14 08:22] LABS: ALANINE AMINOTRANSFERASE 17 U/L (12-78); ALBUMIN 3.2 G/DL (3.4-5.0); ALBUMIN/GLOBULIN RATIO 0.9 (1.1-1.5); ALKALINE PHOSPHATASE 36 IU/L (46-116); ANION GAP 11 (8-16); ASPARTATE AMINO TRANSFERASE 2 U/L (10-37); BILIRUBIN,TOTAL 0.9 MG/DL (0.1-1.0); BLOOD UREA NITROGEN 5 MG/DL (7-18); BUN/CREATININE RATIO 7.2 (10.0-20.0); CALCIUM 8.3 MG/DL (8.5-10.1); CHLORIDE 105 MMOL/L (99-107); CHOL/HDL RATIO 5.7 (0.00-4.99); CHOLESTEROL 148 MG/DL (0-200); CREATININE 0.69 MG/DL (0.40-0.90); FREE T4 (FREE THYROXINE) 1.33 NG/DL (0.73-1.40); GLUCOSE 85 MG/DL (70-104); HDL CHOLESTEROL 26 MG/DL (35-60); LDL CHOLESTEROL 89 MG/DL (50-100); MAGNESIUM 1.2 MG/DL (1.5-2.4); POTASSIUM 3.1 MMOL/L (3.5-5.1); SODIUM 137 MMOL/L (135-145); THYROID STIMULATING HORMONE 1.32 ulU/ml (0.34-4.50); TOTAL CARBON DIOXIDE 21.4 MMOL/L (24-32); TOTAL PROTEIN 6.9 G/DL (6.4-8.2); TRIGLYCERIDES 197 MG/DL (20-135); eCRCL 109 ML/MIN; eGFR > 90 ML/MIN
[2023-10-14 08:40] LABS: HEMOGLOBIN A1C 8.1 % (4.5-6.2)
[2023-10-14] MEDS: phenobarbital inj 130 MG in normal saline 100ml IV soln 99 ML IV SCH (08:50)
[2023-10-14] MEDS: magnesium 4gm in 100ml NS 100 ML IV PRN (11:02)
[2023-10-14] MEDS: potassium Cl 40MEQ/1/2NS 520ml 520 ML IV PRN (11:27)
[2023-10-14] MEDS ORDERED: CEFD300C3 PO (12:03)
[2023-10-14 13:02] VITALS: RESP 16; O2SAT 97
== END 2023-10-14 15:20 | disposition home or self-care (01) | DRG 101 ==
LOC: ER 10:24 → UNDOADMIN 17:46 → ED HOLD 17:46 → EDBEDREQTM 22:27 → EDBEDREQSVC 22:27 → ORTHO 4S 10-14 00:12
PROVIDERS: ADMIT Family Medicine; ATTEND Family Medicine
PROC: 4A00X4Z Measurement of Central Nervous Electrical Activity, External Approach (ICD-10-PCS; principal; 2023-10-14)
DX: R56.9 Unspecified convulsions (principal); N39.0 Urinary tract infection, site not specified; G25.9 Extrapyramidal and movement disorder, unspecified; E11.9 Type 2 diabetes mellitus without complications; J45.909 Unspecified asthma, uncomplicated; K21.9 Gastro-esophageal reflux disease without esophagitis; F43.10 Post-traumatic stress disorder, unspecified; F41.9 Anxiety disorder, unspecified; F79 Unspecified intellectual disabilities; Z88.8 Allergy status to other drugs, medicaments and biological substances; Z79.899 Other long term (current) drug therapy
CPT/HCPCS: 36415; 70450; 71045; 80048; 80053; 80061; 80177; 80305; 80320; 81001; 82948; 83036; 83735; 84100; 84439; 84443; 84703; 85025; 85610; 85730; 87077; 87081; 87088; 87186; 92508; 92616; 93005; 95813; 97116; 97161; 97530; 99285; G0378; J0696; J1650; J1815; J2270; J2405; J2560; J3475; J3480; J3490; J7030

== ENCOUNTER 2023-11-24 10:18 | Emergency (ER) | payer MEDICARE, MEDICAID ==
[~2023-11-24] VITALS: Ht 154.9 cm; Wt 65.0 kg
[~2023-11-24 10:18] MED LIST changes: -CLON1TAB12 PO; -DEXT15LI15 PO; -DIPH-518 PO; -KEP500T PO; -LACT10SO3 PO; +LACT10SO78 PO; +LEVE500T PO; -MAGN64TA8 PO; -METF-438 PO; -ONDA4TAB12 PO; +PIOG30TA71 PO; -QUET50TA24 PO
[2023-11-24 10:36] VITALS: TEMP 98.8
[2023-11-24 12:30] VITALS: BP 116/81; PULSE 95; RESP 18; O2SAT 96
== END 2023-11-24 12:32 | disposition home or self-care (01) ==
LOC: ER 10:19
DX: R56.9 Unspecified convulsions (principal); R32 Unspecified urinary incontinence; R51.9 Headache, unspecified; J45.909 Unspecified asthma, uncomplicated; K59.00 Constipation, unspecified; K21.9 Gastro-esophageal reflux disease without esophagitis; E11.9 Type 2 diabetes mellitus without complications; F41.9 Anxiety disorder, unspecified; Z88.8 Allergy status to other drugs, medicaments and biological substances; Z79.899 Other long term (current) drug therapy; Z79.84 Long term (current) use of oral hypoglycemic drugs
CPT/HCPCS: 99283

== ENCOUNTER 2023-12-29 12:13 | Emergency (ER) | payer MEDICARE, MEDICAID ==
[~2023-12-29] VITALS: Ht 152.4 cm; Wt 64.0 kg
[2023-12-29 14:47] VITALS: BP 106/73; PULSE 62; RESP 15; TEMP 98; O2SAT 98
== END 2023-12-29 14:58 | disposition home or self-care (01) ==
LOC: ER 12:14
DX: S09.90XA Unspecified injury of head, initial encounter (principal); J45.909 Unspecified asthma, uncomplicated; K21.9 Gastro-esophageal reflux disease without esophagitis; E11.9 Type 2 diabetes mellitus without complications; F41.9 Anxiety disorder, unspecified; Z88.8 Allergy status to other drugs, medicaments and biological substances; Z79.899 Other long term (current) drug therapy; W19.XXXA Unspecified fall, initial encounter; Y93.89 Activity, other specified; Y92.89 Other specified places as the place of occurrence of the external cause; Y99.8 Other external cause status
CPT/HCPCS: 70450; 99284

== ENCOUNTER 2024-01-22 13:30 | Emergency (ER) | payer MEDICARE, MEDICAID ==
[~2024-01-22] VITALS: Ht 162.6 cm; Wt 56.8 kg
[2024-01-22 14:27] LABS: BASOPHILS % (AUTO) 0.3 % (0-1); EOSINOPHILS # (AUTO) 0.1 X10'3 (0-0.9); HEMATOCRIT 35.3 % (35.0-45.0); HEMOGLOBIN 11.8 g/dl (12.0-16.0); LYMPHOCYTES # (AUTO) 1.3 X10'3 (1.1-4.8); LYMPHOCYTES % (AUTO) 17.9 % (21-51); MEAN CORPUSCULAR HEMOGLOBIN 27.9 PG (27.0-31.0); MEAN CORPUSCULAR HGB CONC 33.3 g/dL (33.0-36.5); MEAN CORPUSCULAR VOLUME 83.8 FL (78-98); MEAN PLATELET VOLUME 8.1 FL (7.4-10.4); MONOCYTES # (AUTO) 0.3 X10'3 (0-0.9); MONOCYTES % (AUTO) 4.8 % (2-12); NEUTROPHILS # (AUTO) 5.4 X10'3 (1.8-7.7); PLATELET COUNT 270 X10'3 (140-440); RED BLOOD COUNT 4.22 X10'6 (4.20-5.60); WHITE BLOOD COUNT 7.2 X10'3 (4.5-11.0)
[2024-01-22 14:40] LABS: ALANINE AMINOTRANSFERASE 21 U/L (12-78); ALBUMIN 3.3 G/DL (3.4-5.0); ALBUMIN/GLOBULIN RATIO 0.8 (1.1-1.5); ALKALINE PHOSPHATASE 41 IU/L (46-116); ANION GAP 8 (8-16); ASPARTATE AMINO TRANSFERASE 4 U/L (10-37); BILIRUBIN,DIRECT 0.3 MG/DL (0-0.3); BILIRUBIN,TOTAL 0.6 MG/DL (0.1-1.0); BLOOD UREA NITROGEN 11 MG/DL (7-18); BUN/CREATININE RATIO 11.7 (10.0-20.0); CALCIUM 9.2 MG/DL (8.5-10.1); CHLORIDE 98 MMOL/L (99-107); CREATININE 0.94 MG/DL (0.40-0.90); GLUCOSE 263 MG/DL (70-104); LIPASE 38 U/L (16-77); POTASSIUM 4.5 MMOL/L (3.5-5.1); SODIUM 133 MMOL/L (135-145); TOTAL CARBON DIOXIDE 26.6 MMOL/L (24-32); TOTAL PROTEIN 7.4 G/DL (6.4-8.2); eCRCL 79 ML/MIN; eGFR 73 ML/MIN
[2024-01-22] MEDS: normal saline 1000ML IV soln IVB ONE (15:00)
[2024-01-22 16:49] LABS: BILIRUBIN,URINE NEGATIVE (Neg); CLARITY,URINE CLEAR (Clear); COLOR,URINE STRAW (Yellow); GLUCOSE, URINE NEGATIVE (Neg); KETONES,URINE NEGATIVE (Neg); LEUKOCYTE ESTERASE ,URINE NEGATIVE (Neg); NITRITES, URINE NEGATIVE (Neg); OCCULT BLOOD,URINE NEGATIVE (Neg); PH,URINE 7.5 (4.8-8.0); PROTEIN,URINE NEGATIVE (Neg); UROBILINOGEN,URINE 0.2 E.U/dL (0.2-1.0)
[2024-01-22 16:52] LABS: UA COLLECTION TYPE NON-SPECIFIED
[2024-01-22 17:07] VITALS: BP 136/84; PULSE 80; RESP 16; TEMP 98; O2SAT 98
== END 2024-01-22 17:11 | disposition home or self-care (01) ==
LOC: ER 13:31
DX: E11.65 Type 2 diabetes mellitus with hyperglycemia (principal); J45.909 Unspecified asthma, uncomplicated; K21.9 Gastro-esophageal reflux disease without esophagitis; F41.9 Anxiety disorder, unspecified; Z20.822 Contact with and (suspected) exposure to COVID-19; Z79.899 Other long term (current) drug therapy; Z88.8 Allergy status to other drugs, medicaments and biological substances
CPT/HCPCS: 36415; 71045; 80048; 80076; 81003; 82948; 83690; 85025; 87811; 96360; 96361; 99284; J7030

== ENCOUNTER 2024-02-07 11:14 | Emergency (ER) | payer MEDICARE, MEDICAID ==
[~2024-02-07] VITALS: Ht 167.6 cm; Wt 61.0 kg
[2024-02-07 12:27] LABS: BILIRUBIN,URINE SMALL (Neg); CLARITY,URINE SLIGHTLY CLOUDY (Clear); COLOR,URINE AMBER (Yellow); GLUCOSE, URINE NEGATIVE (Neg); KETONES,URINE NEGATIVE (Neg); LEUKOCYTE ESTERASE ,URINE NEGATIVE (Neg); NITRITES, URINE NEGATIVE (Neg); OCCULT BLOOD,URINE NEGATIVE (Neg); PH,URINE 7.5 (4.8-8.0); PROTEIN,URINE TRACE mg/dl (Neg)
[2024-02-07 12:33] LABS: UA COLLECTION TYPE FOLEY CATH
[2024-02-07 12:34] LABS: MUCUS STRANDS MODERATE /LPF (Neg); SQUAMOUS EPITHELIAL CELL,UR MODERATE /LPF (FEW)
[2024-02-07 12:35] LABS: AMORPHOUS PHOSPHATES 1+; RBC,URINE 0-2 /HPF (0-2); WBC,URINE 0-4 /HPF (0-4)
[2024-02-07 12:36] LABS: BACTERIA,URINE NONE SEEN /HPF (Neg)
[2024-02-07] MEDS: magnesium oxide 400mg tablet PO ONE ×2 (14:12→15:46)
[2024-02-07 14:39] LABS: ALBUMIN 3.3 G/DL (3.4-5.0); ANION GAP 7 (8-16); BASOPHILS % (AUTO) 0.5 % (0-1); BLOOD UREA NITROGEN 16 MG/DL (7-18); BUN/CREATININE RATIO 16.8 (10.0-20.0); CALCIUM 9.7 MG/DL (8.5-10.1); CHLORIDE 102 MMOL/L (99-107); CREATININE 0.95 MG/DL (0.40-0.90); EOSINOPHILS # (AUTO) 0.1 X10'3 (0-0.9); EOSINOPHILS % (AUTO) 1.9 % (0-6); GLUCOSE 184 MG/DL (70-104); HEMOGLOBIN 11.7 g/dl (12.0-16.0); LYMPHOCYTES # (AUTO) 1.5 X10'3 (1.1-4.8); LYMPHOCYTES % (AUTO) 22.2 % (21-51); MAGNESIUM 1.5 MG/DL (1.5-2.4); MEAN CORPUSCULAR HEMOGLOBIN 27.7 PG (27.0-31.0); MEAN CORPUSCULAR HGB CONC 33.4 g/dL (33.0-36.5); MEAN PLATELET VOLUME 8.1 FL (7.4-10.4); MONOCYTES # (AUTO) 0.3 X10'3 (0-0.9); MONOCYTES % (AUTO) 4.3 % (2-12); NEUTROPHILS # (AUTO) 4.9 X10'3 (1.8-7.7); NEUTROPHILS % (AUTO) 71.1 % (42-75); PLATELET COUNT 285 X10'3 (140-440); POTASSIUM 4.3 MMOL/L (3.5-5.1); RED BLOOD COUNT 4.22 X10'6 (4.20-5.60); RED CELL DISTRIBUTION WIDTH 13.3 % (11.5-14.5); SODIUM 136 MMOL/L (135-145); TOTAL CARBON DIOXIDE 26.8 MMOL/L (24-32); WHITE BLOOD COUNT 6.8 X10'3 (4.5-11.0); eCRCL 85 ML/MIN; eGFR 72 ML/MIN
[2024-02-07 15:55] VITALS: BP 100/76; PULSE 93; RESP 16; TEMP 97.8; O2SAT 98
== END 2024-02-07 15:59 | disposition home or self-care (01) ==
LOC: ER 11:15
DX: R00.2 Palpitations (principal); G80.9 Cerebral palsy, unspecified; E83.42 Hypomagnesemia; J45.909 Unspecified asthma, uncomplicated; K21.9 Gastro-esophageal reflux disease without esophagitis; E11.9 Type 2 diabetes mellitus without complications; F41.9 Anxiety disorder, unspecified; Z88.8 Allergy status to other drugs, medicaments and biological substances; Z79.899 Other long term (current) drug therapy
CPT/HCPCS: 36415; 80048; 81001; 83735; 84484; 85025; 93005; 99284; C1758

== ENCOUNTER 2024-02-20 12:58 | Emergency (ER) | payer MEDICARE, MEDICAID ==
[~2024-02-20] VITALS: Ht 165.1 cm; Wt 59.1 kg
[2024-02-20 13:18] VITALS: TEMP 98.3
[2024-02-20 13:59] LABS: BASOPHILS % (AUTO) 0.3 % (0-1); EOSINOPHILS # (AUTO) 0.1 X10'3 (0-0.9); EOSINOPHILS % (AUTO) 0.9 % (0-6); HEMATOCRIT 34.8 % (35.0-45.0); HEMOGLOBIN 11.4 g/dl (12.0-16.0); LYMPHOCYTES # (AUTO) 1.2 X10'3 (1.1-4.8); LYMPHOCYTES % (AUTO) 15.9 % (21-51); MEAN CORPUSCULAR HEMOGLOBIN 27.4 PG (27.0-31.0); MEAN CORPUSCULAR HGB CONC 32.8 g/dL (33.0-36.5); MEAN CORPUSCULAR VOLUME 83.6 FL (78-98); MEAN PLATELET VOLUME 8.5 FL (7.4-10.4); MONOCYTES # (AUTO) 0.3 X10'3 (0-0.9); NEUTROPHILS # (AUTO) 6.1 X10'3 (1.8-7.7); NEUTROPHILS % (AUTO) 78.9 % (42-75); PLATELET COUNT 274 X10'3 (140-440); RED BLOOD COUNT 4.16 X10'6 (4.20-5.60); RED CELL DISTRIBUTION WIDTH 13.3 % (11.5-14.5); WHITE BLOOD COUNT 7.7 X10'3 (4.5-11.0)
[2024-02-20] MEDS: haloperidol lactate 5mg/ml inj IVH ONE (15:00)
[2024-02-20 15:07] LABS: ALBUMIN 3.3 G/DL (3.4-5.0); ANION GAP 11 (8-16); BLOOD UREA NITROGEN 13 MG/DL (7-18); BUN/CREATININE RATIO 14.4 (10.0-20.0); CALCIUM 9.3 MG/DL (8.5-10.1); CHLORIDE 101 MMOL/L (99-107); GLUCOSE 227 MG/DL (70-104); POTASSIUM 4.1 MMOL/L (3.5-5.1); SODIUM 136 MMOL/L (135-145); TOTAL CARBON DIOXIDE 23.9 MMOL/L (24-32); eCRCL 86 ML/MIN; eGFR 76 ML/MIN
[2024-02-20 16:51] VITALS: BP 108/81; PULSE 101; RESP 13; O2SAT 98
== END 2024-02-20 16:54 | disposition home or self-care (01) ==
LOC: ER 12:59
DX: R40.4 Transient alteration of awareness (principal); J45.909 Unspecified asthma, uncomplicated; K21.9 Gastro-esophageal reflux disease without esophagitis; F41.9 Anxiety disorder, unspecified; Z88.8 Allergy status to other drugs, medicaments and biological substances; Z79.899 Other long term (current) drug therapy
CPT/HCPCS: 36415; 70450; 71045; 80048; 82140; 84484; 85025; 93005; 96374; 99285; J1630; J7030; C1758